=== PATIENT | female | born 1990 | race Caucasian/White ===

== ENCOUNTER 2018-01-12 17:52 | Emergency (ER) | payer SELFPAY ==
[2018-01-12] VITALS (10 sets, daily range): BP systolic 115–122; BP diastolic 65–94; PULSE 86–113; RESP 10–29; TEMP 36.7; O2SAT 83–100
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
[2018-01-12 18:40] LABS: Abs Immature Grans 0.01 k/cumm (0.0-0.09); Absolute Basophil Count 0.04 k/cumm (0.0-0.2); Absolute Eosinophil Count 0.39 k/cumm (0.0-0.7); Absolute Lymphocyte Count 1.95 k/cumm (1.2-3.4); Absolute Monocyte Count 0.61 k/cumm (0.11-0.7); Basophils % 0.5; Eosinophils % 4.6; HCT 45.8 % (36.0-46.0); HGB 15.4 g/dL (12.0-15.5); Immature Grans % 0.1; Lymphocytes % 22.9; Mean Corp. HGB Concentration 33.6 g/dL (32.0-36.0); Mean Corpuscular Hemoglobin 31.2 pg (27.0-33.0); Mean Corpuscular Volume 92.7 fL (80-95); Mean Platelet Volume 9.7 fL (8.0-11.0); Monocytes % 7.2; Neutrophils % 64.7; Platelet Count 302 x1000/uL (130-400); RBC 4.94 m/cumm (4.00-5.20); RBC Distribution Width 12.5 % (11.7-14.6)
[2018-01-12 18:58] LABS: ALT 35 U/L (12-78); AST 26 U/L (15-37); Albumin 4.3 g/dL (3.4-5.0); Alkaline Phosphatase 66 U/L (46-116); BUN 13 mg/dL (7-18); Bilirubin, Total 0.5 mg/dL (0.2-1.0); CREATININE 0.81 mg/dL (0.55-1.02); Chloride 99 mmol/L (98-107); Glucose 94 mg/dL (70-100); Magnesium 1.8 mg/dL (1.8-2.4); Potassium 3.9 mmol/L (3.5-5.1); Sodium 136 mmol/L (136-145); Total Protein 7.9 g/dL (6.4-8.2); Troponin I < 0.02 ng/mL (0.00-0.06)
[2018-01-12] MEDS: Normal Saline Flush 10 ML SYR IVP (19:10)
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
[2018-01-12] MEDS: Cyclobenzaprine 10 MG TAB PO (19:45)
== END 2018-01-12 19:59 | disposition home or self-care (01) ==
PROVIDERS: Emergency Provider Nurse Practitioner Family; PCP Nurse Practitioner Adult Health
DX: S60.812A Abrasion of left wrist, initial encounter (principal); M54.5 Low back pain; M54.2 Cervicalgia; N83.8 Other noninflammatory disorders of ovary, fallopian tube and broad ligament; V47.5XXA Car driver injured in collision with fixed or stationary object in traffic accident, initial encounter
CPT/HCPCS: 36415; 80053; 99284; 70450; 72125; 74176; 81003; 83735; 84484; 85025; L0120

== ENCOUNTER 2018-04-13 12:42 | Emergency (ER) | payer MEDICAID, SELFPAY ==
[2018-04-13] VITALS (31 sets, daily range): BP systolic 93–115; BP diastolic 44–100; PULSE 83–118; RESP 1–25; TEMP 37.1; O2SAT 95–100
[2018-04-13] MEDS: Albuterol/Ipratropium 3 ML UPD VIAL ×2 (13:12→13:21)
--- NOTE | 2018-04-13 13:26 | DI.RAD_ITS ---
SYMPTOM/DIAGNOSIS: COUGH, ASTHMA PA AND LATERAL CHEST: Comparison is made with 10 May 2011. The heart size is normal. The lungs are hyperinflated but otherwise clear. No infiltrate, effusion or pneumothorax is seen. IMPRESSION: Hyperinflation, otherwise negative.
--- NOTE | 2018-04-13 13:34 | ED.GENADUL_ITS ---
Discharge Plan Disposition Patient Disposition: HOME Discharge Details Chief Complaint: RespSymp Clinical Impression: Asthma exacerbation, Bronchitis Reason For Visit: sob Primary Care Provider: Christina Brock ED Provider: Ross Kevin Home Meds and New Rx's Prescriptions: New prednisone 20 mg tablet 40 mg PO DAILY Qty: 8 RF: 0 doxycycline hyclate 100 mg tablet 100 mg PO BID Qty: 9 RF: 0 Continued sertraline 100 MG tablet 200 mg PO HS RF: 0 quetiapine [Seroquel] 100 MG tablet 150 mg PO HS RF: 0 dextroamphetamine-amphetamine [Adderall] 20 MG tablet 20 mg PO TID RF: 0 Discharge Instructions Instructions: Asthma (ED), Acute Bronchitis (ED) Additional Instructions: Please take medication as prescribed. Use your inhaler: 2 puffs every 4 hours as needed for wheeze or shortness of breath. Please contact your primary care physician to arrange follow-up. Return to the ER for any worsening or new concerning symptoms. Referrals: Christina Brock [Primary Care Provider] - Discharge Data Discharge Date/Time-TO BE ENTERED AT DEPARTURE: 04/13/18 15:48 Medical Decision Making 13:32 --27-year-old female with history of asthma here with shortness of breath, wheeze and cough worsening for the past week Patient used her boyfriend's epipen 3 times this past week most recently at 4 AM last night. Advised that this was not advised as initial treatment for asthma. Plan to treat with albuterol DuoNeb as well as prednisone. Respiratory therapy was consulted and administered 2 DuoNeb's. Patient's wheeze resolved after treatment. Consider PNA vs URI. cxr pending. --Chest x-ray reviewed and interpreted by radiology:IMPRESSION: Possible obstructive airways disease versus good inspiratory effort. No pulmonary consolidation. --Patient reassessed and significantly improved. requesting discharge. provided education on albuterol inhaler and spacer. Prescribed doxy and prednisone. HPI General Mode of arrival: ambulatory . Date/Time Provider Initiated Documentation: 04/13/18 13:02 . Limitations to Documentation: no limitations . Information obtained by: patient . HPI Narrative: 27-year-old female with history of asthma presents with chief complaint of shortness of breath. Patient notes over the past week she has had cough and intermittent shortness of breath with wheezing. Symptoms consistent with prior asthma exacerbations. Patient notes that she has had trouble with transportation and over the past 1 week has used 3 EpiPen's to treat her asthma. She last administered EpiPen this morning at 4 AM -this did help her symptoms. Shortness of breath and wheeze has been severe at times. No assoc CP. No fever. Related Data Home Medications Medication Instructions Recorded Confirmed dextroamphetamine-amphetamine 20 mg PO TID 06/09/17 04/13/18 [Adderall] quetiapine [Seroquel] 150 mg PO HS 06/09/17 04/13/18 sertraline 200 mg PO HS 06/09/17 04/13/18 doxycycline hyclate 100 mg PO BID #9 tab 04/13/18 prednisone 40 mg PO DAILY #8 tab 04/13/18 Previous Rx's Medication Instructions Recorded doxycycline hyclate 100 mg PO BID #9 tab 04/13/18 prednisone 40 mg PO DAILY #8 tab 04/13/18 Allergies Allergy/AdvReac Type Severity Reaction Status Date / Time No Known Allergies Allergy Unverified 04/18/18 09:21 General Stated Complaint: RespSymp ALYSE: 3 Review of Systems Constitutional Denies fever(s) Cardiovascular Denies chest pain and Reports dyspnea Respiratory Reports dyspnea and Reports wheezing Allergic/Immunologic Reports wheezing PFSH Medical History Asthma (Chronic) Social History Smoking/Tobacco Use Status: Former Tobacco Use Exam Const General: cooperative and no acute distress HENMT Head: normocephalic and atraumatic Mouth: moist mucous membranes Throat: posterior oropharynx normal Eyes Conjunctivae: normal conjunctivae Sclera: normal sclerae EOM: EOM intact bilaterally Neck Neck: trachea midline and supple Resp Effort & Inspection: able to speak in complete sentences, no retractions, no stridor and tachypneic Auscultation: no rales, rhonchi and wheezes scattered wheezes Cardio Jugular venous pressure: no JVD Rate: regular rate and not tachycardic Rhythm: regular rhythm GI Palpation: soft, not firm, no guarding, no masses, not rigid and nontender Skin General skin exam: no rashes or lesions noted Neuro General: alert, awake, oriented x3 and tone normal Extrem General: no edema Psych Appearance: grossly normal Mental Status: mental status grossly normal Speech and Movement: speech and movement normal Course Vital Signs Temperature 37.1 C 04/13/18 12:51 Pulse 97 H 04/13/18 12:51 Respiratory Rate 24 04/13/18 12:51 Blood Pressure 115/100 H 04/13/18 12:51 Pulse Oximetry 97 04/13/18 12:51 Temperature 37.1 C 04/13/18 12:51 Temperature Source Tympanic 04/13/18 12:51 Pulse 97 H 04/13/18 12:51 Respiratory Rate 24 04/13/18 12:51 Blood Pressure 115/100 H 04/13/18 12:51 Pulse Oximetry 97 04/13/18 12:51 Oxygen Delivery Method Room Air 04/13/18 12:51 Oxygen Flow Rate 0 04/13/18 12:51
[2018-04-13] MEDS: predniSONE 20 MG TAB 60 MG PO (13:40)
--- NOTE | 2018-04-13 14:18 | DI.VRAD_ITS ---
EXAM: XR Chest, 2 Views EXAM DATE/TIME: 04/13/2018 1:27 PM CLINICAL HISTORY: 27 years old, female; Signs and symptoms; Cough TECHNIQUE: XR of the chest, 2 views. COMPARISON: CR CHEST 2 VIEWS PA,LAT 05/10/2011 12:17 PM FINDINGS: Lungs: Hyperexpanded lungs which may be seen with obstructive airways disease or good inspiratory effort. The lungs are clear. Pleural space: No pleural effusion or pneumothorax. Heart/Mediastinum: The cardiomediastinal silhouette and vasculature are within normal limits. Bones/joints: Unremarkable. IMPRESSION: Possible obstructive airways disease versus good inspiratory effort. No pulmonary consolidation. Dictated and Authenticated by: Theron Smith MD. Ordering:OSVALDO Hawkins MD
[2018-04-13] MEDS: Albuterol HFA 8 GM 60 PUFF INH IH (15:35)
[2018-04-13] MEDS: Doxycycline Hyclate 100 MG CAP PO (15:45)
== END 2018-04-13 15:48 | disposition home or self-care (01) ==
PROVIDERS: Emergency Provider Student in an Organized Health Care Education/Training Program; PCP Nurse Practitioner Family
DX: J44.0 Chronic obstructive pulmonary disease with (acute) lower respiratory infection (principal); J20.9 Acute bronchitis, unspecified; J45.909 Unspecified asthma, uncomplicated; Z87.891 Personal history of nicotine dependence
CPT/HCPCS: 36416; 81025; 93005; 94640; 99284; 71046; 93010; J7512; J7620

== ENCOUNTER 2018-04-18 09:05 | Emergency (ER) | payer MEDICAID, SELFPAY ==
[2018-04-18 09:14] VITALS: RESP 4
[2018-04-18] MEDS: Albuterol/Ipratropium 3 ML UPD VIAL UPD ×2 (09:14)
[2018-04-18 09:15] VITALS: BP 103/64; PULSE 110; RESP 18; TEMP 36.7; O2SAT 96
--- NOTE | 2018-04-18 09:23 | W.ED.GENAD ---
Discharge Plan Disposition Patient Disposition: HOME Condition: Improving Discharge Details Chief Complaint: SOB Clinical Impression: Acute asthma exacerbation, Noncompliance with medication regimen Primary Care Provider: Christina Brock ED Provider: Ross Kevin Home Meds and New Rx's Prescriptions: New albuterol sulfate 90 mcg/actuation HFA aerosol inhaler 2 puff IH Q4H PRN (Reason: shortness of breath or wheezing) Qty: 8 RF: 2 Continued sertraline 100 MG tablet 200 mg PO HS RF: 0 quetiapine [Seroquel] 100 MG tablet 150 mg PO HS RF: 0 dextroamphetamine-amphetamine [Adderall] 20 MG tablet 20 mg PO TID RF: 0 prednisone 20 mg tablet 40 mg PO DAILY Qty: 8 RF: 0 doxycycline hyclate 100 mg tablet 100 mg PO BID Qty: 9 RF: 0 Discharge Instructions Instructions: Albuterol (By breathing), Asthma (ED) Additional Instructions: Please take medication as prescribed. Usealbuterol inhaler: 2 puffs every 4 hours as needed for shortness of breath or wheeze. Please contact your primary care physician to arrange follow-up. Return to the ER for any worsening or new concerning symptoms. Referrals: Christina Brock [Primary Care Provider] - Discharge Data Discharge Date/Time-TO BE ENTERED AT DEPARTURE: 04/18/18 10:27 Medical Decision Making 9:25 -- 27-year-old female with history of asthma, recently seen in the emergency department for asthma and bronchitis, noncompliant with treatment plan as she has been unable to secure transportation to pharmacy, returning today with recurrent worsening of wheeze and shortness of breath. Saturating well. Wheezing bilaterally. Plan to treat with duo nebs as well as prednisone. I will asked care management to see the patient to help with resources. 10:15 -- Pt reassessed and wheeze resolved. Much improved. Disposition decision was made weighing the risks and benefits of hospitalization versus outpatient treatment, the risk for further decompensation, and the patient's wishes. The patient was stable and requested discharge. Prior to discharge, my usual and customary return precautions were reviewed with the patient - this included follow-up instructions and reason to return to the emergency department if condition worsens, does not improve as expected, or other new concerns arise. Care management to arrange for taxi to pharmacy. HPI General Mode of arrival: ambulatory. Date/Time Provider Initiated Documentation: 04/18/18 09:11. Limitations to Documentation: no limitations. Information obtained by: patient. HPI Narrative: 27-year-old female with history of asthma presents with chief complaint of wheeze and shortness of breath. Symptoms severe. No modifiers. She does have associated mild cough. Patient was seen here on 04/13/2018 for asthma exacerbation and bronchitis. She had a chest x-ray that did not reveal any pneumonia. She was treated with albuterol nebs and prednisone and had significant improvement. She was discharged on prednisone, doxycycline, and given an albuterol inhaler with spacer. Unfortunately her dog ate her inhaler and she has not been able to fill her prescription for prednisone or doxycycline. She has continued to have intermittent waxing and waning wheeze as well as cough. Today around 5 AM she suddenly developed severe worsening of wheeze and shortness of breath. Denies fever. Related Data Home Medications Medication Instructions Recorded Confirmed dextroamphetamine-amphetamine 20 mg PO TID 06/09/17 04/18/18 [Adderall] quetiapine [Seroquel] 150 mg PO HS 06/09/17 04/18/18 sertraline 200 mg PO HS 06/09/17 04/18/18 doxycycline hyclate 100 mg PO BID #9 tab 04/13/18 prednisone 40 mg PO DAILY #8 tab 04/13/18 albuterol sulfate 2 puff IH Q4H PRN #8 gm 04/18/18 Previous Rx's Medication Instructions Recorded doxycycline hyclate 100 mg PO BID #9 tab 04/13/18 prednisone 40 mg PO DAILY #8 tab 04/13/18 albuterol sulfate 2 puff IH Q4H PRN #8 gm 04/18/18 Allergies Allergy/AdvReac Type Severity Reaction Status Date / Time No Known Allergies Allergy Unverified 04/18/18 09:21 General Stated Complaint: SOB ALYSE: 3 Review of Systems Review of Systems All systems reviewed & are unremarkable except as noted in HPI and below Cardiovascular Denies chest pain Respiratory Reports as per HPI PFSH Medical History Asthma (Chronic) Social History Smoking and Tabacco status: Former Tobacco Use Exam Const General: cooperative and no acute distress [facility] Head: normocephalic and atraumatic Mouth: moist mucous membranes Eyes Conjunctivae: normal conjunctivae Sclera: normal sclerae EOM: EOM intact bilaterally Neck Neck: trachea midline and supple Resp Effort & Inspection: no cough and other (tachypnea) Auscultation: no rales and wheezes expiratory wheezes Cardio Jugular venous pressure: no JVD Rate: regular rate and not tachycardic Rhythm: regular rhythm GI Palpation: soft, not firm, no guarding, no masses, not rigid and nontender Skin General skin exam: no rashes or lesions noted Neuro General: alert, awake, oriented x3 and tone normal Extrem General: no edema Psych Appearance: grossly normal Speech and Movement: speech and movement normal Course Vital Signs Temperature 36.7 C 04/18/18 09:15 Pulse 110 H 04/18/18 09:15 Respiratory Rate 18 04/18/18 09:15 Blood Pressure 103/64 04/18/18 09:15 Pulse Oximetry 96 04/18/18 09:15 Temperature 36.7 C 04/18/18 09:15 Temperature Source Temporal Artery Scan 04/18/18 09:15 Pulse 110 H 04/18/18 09:15 Respiratory Rate 18 04/18/18 09:15 Respiratory Effort Accessory Muscle Use 04/18/18 09:18 Blood Pressure 103/64 04/18/18 09:15 Blood Pressure Position Sitting 04/18/18 09:15 Pulse Oximetry 96 04/18/18 09:15 Oxygen Delivery Method Room Air 04/18/18 09:15 Oxygen Flow Rate 0 04/18/18 09:15 Pain Level 0 04/18/18 09:15
[2018-04-18] MEDS: predniSONE 20 MG TAB 60 MG PO (09:28)
[2018-04-18 09:52] VITALS: RESP 20
[2018-04-18 09:53] VITALS: BP 102/57; PULSE 92; O2SAT 100
[2018-04-18] MEDS: Albuterol HFA 8 GM 60 PUFF INH IH (10:21)
[2018-04-18 10:22] VITALS: BP 100/48; PULSE 109; RESP 18; O2SAT 97
[2018-04-18 10:41] VITALS: BP 115/87; PULSE 66; RESP 18; O2SAT 97
--- NOTE | 2018-04-18 14:18 | PDOC.ERCMPRO ---
Care Management Progress Note 04/18-Dr. Kevin requested assistance with Ashley picking up medication at pharmacy and transportation home. Ashley was seen over the weekend and did not get her medications picked up. Dr. Kevin has requested that patient's scripts be called in to her pharmacy. Met with Ashley and she states she has no transportation. Discussed pharmacy, she uses [facility] in [facility]. 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 Nurse called scripts to [facility]. Called [facility] and spoke with Barbara. Barbara scheduled Ashley for an 1115 pickup and verified that [facility] will bring her to [facility] first. Dr. Kevin, patient, and nursing all in agreement with above plan.
--- NOTE | 2018-04-18 14:21 | CMPROGNOTE_ITS ---
Care Management Progress Note 04/18-Dr. Kevin requested assistance with Ashley picking up medication at pharmacy and transportation home. Ashley was seen over the weekend and did not get her medications picked up. Dr. Kevin has requested that patient's scripts be called in to her pharmacy. Met with Ashley and she states she has no transportation. Discussed pharmacy, she uses [facility] in [facility]. 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 Nurse called scripts to [facility]. Called [facility] and spoke with Barbara. Barbara scheduled Ashley for an 1115 pickup and verified that [facility] will bring her to [facility] first. Dr. Kevin, patient, and nursing all in agreement with above plan.
== END 2018-04-18 10:27 | disposition home or self-care (01) ==
PROVIDERS: Emergency Provider Student in an Organized Health Care Education/Training Program; PCP Nurse Practitioner Family
DX: J45.909 Unspecified asthma, uncomplicated (principal); Z91.19 Patient's noncompliance with other medical treatment and regimen
CPT/HCPCS: 94640; 99283; J7512; J7620

== ENCOUNTER 2018-05-09 05:46 | Emergency (ER) | payer MEDICAID, SELFPAY ==
[2018-05-09 05:47] VITALS: BP 139/71; PULSE 106; RESP 20; TEMP 36.6; O2SAT 99
--- NOTE | 2018-05-09 06:33 | ED.GENADUL_ITS ---
Discharge Plan Disposition Patient Disposition: HOME Condition: Good Discharge Details Chief Complaint: RespSymp Clinical Impression: Asthma exacerbation Reason For Visit: BHARAT Primary Care Provider: Christina Brock ED Provider: Calin Rivas Home Meds and New Rx's Prescriptions: New prednisone 10 mg tablet See Rx Instructions .ROUTE .COMPLEX Qty: 30 RF: 0 Continued sertraline 100 MG tablet 200 mg PO HS RF: 0 quetiapine [Seroquel] 100 MG tablet 150 mg PO HS RF: 0 dextroamphetamine-amphetamine [Adderall] 20 MG tablet 20 mg PO TID RF: 0 albuterol sulfate 90 mcg/actuation HFA aerosol inhaler 2 puff IH Q4H PRN (Reason: shortness of breath or wheezing) Qty: 8 RF: 2 Discharge Instructions Instructions: Asthma (ED) Additional Instructions: Please take prednisone as directed. Use your inhaler every 4-6 hours as needed for wheeze and cough. Make follow-up appointment for next week with primary care. Return to emergency department for fever, increasing shortness of breath, other concerns. Referrals: Christina Brock [Primary Care Provider] - Medical Decision Making Patient with worsening asthma symptoms over the last week or so. Has run out of her inhaler. Has not been able to get into see her primary care. Received an albuterol in route. Continues to have diffuse wheezing throughout. Will give prednisone, albuterol, DuoNeb here. Will reevaluate plan on discharge with inhaler and prednisone. Patient with much better air exchange after the 3 nebs total. Still has some wheezing and now has some rhonchi but has good air movement. She feels better. Saturations are good. Will be discharged home on a prednisone burst and taper as well as albuterol inhaler. Follow-up with primary care next week. Medical Records Medical records reviewed: Yes I reviewed the patient's medical records. HPI General Mode of arrival: EMS . Date/Time Provider Initiated Documentation: 05/09/18 06:30 . Limitations to Documentation: no limitations . Information obtained by: patient and old records reviewed . HPI Narrative: Patient presents to ED by ambulance for wheezing and shortness of breath. Patient is out of her albuterol inhaler. She reports having her doctor's appointments canceled by the office. She has been seen here a couple of times with asthma exacerbation. She denies smoking. She continues to have some nasal congestion and cold type symptoms intermittently. Has been having worsening symptoms again. This morning woke up with chest tightness, wheezing, inability to take a deep breath. EMS was contacted. She received a albuterol in route. She is feeling like she can breathe better but still feels short of breath. Related Data Home Medications Medication Instructions Recorded Confirmed dextroamphetamine-amphetamine 20 mg PO TID 06/09/17 05/09/18 [Adderall] quetiapine [Seroquel] 150 mg PO HS 06/09/17 05/09/18 sertraline 200 mg PO HS 06/09/17 05/09/18 albuterol sulfate 2 puff IH Q4H PRN #8 gm 04/18/18 prednisone See Rx Instructions .ROUTE 05/09/18 .COMPLEX #30 tab Previous Rx's Medication Instructions Recorded albuterol sulfate 2 puff IH Q4H PRN #8 gm 04/18/18 prednisone See Rx Instructions .ROUTE 05/09/18 .COMPLEX #30 tab Allergies Allergy/AdvReac Type Severity Reaction Status Date / Time No Known Allergies Allergy Unverified 05/09/18 05:54 General Stated Complaint: RespSymp ALYSE: 4 Review of Systems Constitutional Denies chills, Denies fever(s), Denies headache(s) and Denies weakness ENT Denies otalgia, Denies headache(s), Reports nasal congestion, Denies neck pain and Denies sore throat Cardiovascular Denies chest pain, Denies syncope, Denies pedal edema and Reports dyspnea Respiratory Reports chest congestion, Reports cough, Reports dyspnea and Reports wheezing Gastrointestinal Denies abdominal pain, Denies diarrhea, Denies nausea and Denies vomiting Musculoskeletal Denies back pain and Denies neck pain Neurologic Denies syncope, Denies headache(s), Denies focal weakness, Denies sensory deficit and Denies weakness Allergic/Immunologic Reports wheezing PFSH Medical History ADD (attention deficit disorder) (Chronic) Anxiety (Chronic) Depression (Chronic) Asthma (Chronic) Social History Smoking and Tabacco status: Former Tobacco Use Exam Const General: cooperative and no acute distress Orientation: alert and oriented x3 HENMT Head: normocephalic and atraumatic Mouth: oropharynx normal Throat: posterior oropharynx normal Neck Neck: trachea midline and supple Resp Effort & Inspection: normal respiratory effort Auscultation: no rales, no rhonchi and wheezes Cardio Rate: regular rate Rhythm: regular rhythm Heart Sounds: S1 normal and S2 normal Neuro General: alert, oriented x3, no focal motor deficits and CN's II-XI intact bilaterally Course Vital Signs Temperature 97.9 F 05/09/18 05:47 Pulse 106 H 05/09/18 05:47 Respiratory Rate 20 05/09/18 05:47 Blood Pressure 139/71 05/09/18 05:47 Pulse Oximetry 99 05/09/18 05:47 Temperature 97.9 F 05/09/18 05:47 Temperature Source Skin 05/09/18 05:47 Pulse 106 H 05/09/18 05:47 Respiratory Rate 20 05/09/18 05:47 Respiratory Effort 05/09/18 05:53 Blood Pressure 139/71 05/09/18 05:47 Blood Pressure Position Sitting 05/09/18 05:47 Pulse Oximetry 99 05/09/18 05:47 Oxygen Delivery Method Aerosol Mask 05/09/18 05:47
[2018-05-09] MEDS: predniSONE 20 MG TAB 60 MG PO (06:42)
[2018-05-09] MEDS: Albuterol/Ipratropium 3 ML UPD VIAL UPD (06:43)
[2018-05-09] MEDS: Albuterol 2.5 MG/3 ML INH SOLN VIAL UPD (07:02)
[2018-05-09 07:26] VITALS: BP 107/57; PULSE 118; RESP 20; TEMP 36.7; O2SAT 98
[2018-05-09 08:16] VITALS: BP 112/58; PULSE 111; RESP 18; TEMP 36.9; O2SAT 96
--- NOTE | 2018-05-09 08:17 | PDOC.ERCMPRO ---
Care Management Progress Note 05/09-Met with Ashley as she needs a ride home. Ashley came in by ambulance for difficulty breathing, respiratory. 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 Scripts have been called in. Aslhey also states that she has not been able to get in to see Christina Brock, Ashley states that her last two appts have been cancelled. Called [facility] and spoke with Malia. Malia stated that transport will be here in about 10-15 minutes. [facility] will stop at [facility] first. Called [facility] and spoke with Jessi. Jessi scheduled Ashley for Sunday, 05/14 at 230 with Christina Brock. This CM met again with Ashley and let her know that her scripts have been called in, [facility] will be here in 15 minutes, and that she has a f/u appt on 05/14. Appt card given to patient as well. Holden CHAPPELL notified of the above.
[2018-05-09 08:18] VITALS: BP 112/58; PULSE 111; RESP 18; TEMP 36.9; O2SAT 96
--- NOTE | 2018-05-09 08:42 | CMPROGNOTE_ITS ---
Care Management Progress Note 05/09-Met with Ashley as she needs a ride home. Ashley came in by ambulance for difficulty breathing, respiratory. 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 Scripts have been called in. Ashley also states that she has not been able to get in to see Christina Brock, Ashley states that her last two appts have been cancelled. Called [facility] and spoke with Malia. Malia stated that transport will be here in about 10-15 minutes. [facility] will stop at [facility] first. Called [facility] and spoke with Jessi. Jessi scheduled Ashley for Sunday, 05/14 at 230 with Christina Brock. This CM met again with Ashley and let her know that her scripts have been called in, [facility] will be here in 15 minutes, and that she has a f/u appt on 05/14. Appt card given to patient as well. Holden CHAPPELL notified of the above.
== END 2018-05-09 08:24 | disposition home or self-care (01) ==
PROVIDERS: Emergency Provider Emergency Medicine; PCP Nurse Practitioner Family
DX: J45.901 Unspecified asthma with (acute) exacerbation (principal)
CPT/HCPCS: 94640; 99283; J7512; J7613; J7620

== ENCOUNTER 2019-11-27 08:46 | Emergency (ER) | payer MEDICAID, SELFPAY ==
--- NOTE | 2019-11-27 08:47 | W.ED.GENAD ---
Discharge Plan Disposition Patient Disposition: HOME Condition: Stable Discharge Details Clinical Impression: Nausea & vomiting Primary Care Provider: Christina Brock ED Provider: Cass Alvarado Home Meds and New Rx's Prescriptions: New promethazine [Promethegan] 12.5 mg suppository 12.5 mg ID Q6H PRN (Reason: nausea and vomiting) Qty: 12 RF: 0 Continued fluticasone propion-salmeterol [Advair Diskus] 500-50 mcg/dose blister with device 1 inh IH BID RF: 0 sertraline 100 MG tablet 200 mg PO HS RF: 0 quetiapine [Seroquel] 100 MG tablet 150 mg PO HS RF: 0 dextroamphetamine-amphetamine [Adderall] 20 MG tablet 20 mg PO TID RF: 0 albuterol sulfate 90 mcg/actuation HFA aerosol inhaler 2 puff IH Q4H PRN (Reason: shortness of breath or wheezing) Qty: 8 RF: 2 prednisone 10 mg tablet See Rx Instructions .ROUTE .COMPLEX Qty: 30 RF: 0 albuterol sulfate 90 mcg/actuation HFA aerosol inhaler 2 puff IH Q6H PRN (Reason: shortness of breath or wheezing) Qty: 8 RF: 0 Discharge Instructions Instructions: Acute Nausea and Vomiting (ED) Additional Instructions: Please continue to encourage water intake. Your CT scan was reassuring did not show any acute pathology in your abdomen. If your nausea and vomiting return, please use the Phenergan as prescribed. If you develop fever/chills, increased pain, inability stay hydrated or other new/worsening symptom please seek care urgently once again. Otherwise, please follow-up with primary care next week for reevaluation. Referrals: Christina Brock [Primary Care Provider] - Discharge Data Discharge Date/Time-TO BE ENTERED AT DEPARTURE: 11/27/19 12:44 Medical Decision Making Patient is a pleasant 29-year-old female past medical history significant for asthma and anxiety, presenting today with chief complaint of abdominal pain and nausea/vomiting that began at 5 AM. She reports that this did wake her up suddenly. States she is vomited x10 this morning. She denies any hematemesis. Denies any diarrhea or change in her bowel habits. Has not urinated yet this morning. LMP 1 month ago. No previous abdominal surgeries. On exam, patient appears nontoxic. She does appear quite anxious. She is endorsing some tingling in her hands but is breathing quite quickly. Patient does have some scattered wheezes. She does have asthma, does not feel that she is having exacerbation. However, she does report that she will use her albuterol at home if she had access to it. We will give her an inhaler. Her abdominal exam reveals some discomfort in the epigastric area as well as over McBurney's point. She does not have any guarding or peritoneal findings. Plan to obtain labs, hydrate the patient, give Zofran and obtain CT to evaluate for potential appendicitis been a source of her current complaints. Discussed this plan at length with patient and she is in agreement. Ct reviewed by radiologist: FINDINGS: ABDOMEN: Lung Bases: Normal where visualized. Liver: Normal density. No measurable mass. Gallbladder and biliary tract: No radiodense calculus or dilation. Pancreas: Normal density, no abnormal calcifications or inflammatory process. Spleen: Normal. Kidneys: Normal size, contour and axis. No radiodense stones or obstructive uropathy. No masses seen. Adrenal glands: No masses seen. Abdominal Aorta: Abdominal portion non-dilated. PELVIS: Bladder: Symmetric distention, no gross wall thickening. Bowel: No obstruction or bowel wall thickening. Normal appendix. Normal quantity of stool. Peritoneal cavity: No ascites, collection or mesenteric inflammatory response. Bones: Within normal limits. Reproductive organs: Within normal limits. IUD Lymph nodes: Unremarkable. Impression: Unremarkable CT scan of the abdomen and pelvis. Labs reviewed. Mild leukocytosis of white count 13.7. Chest slightly low at 3.4. Anion gap of 13.7. Creatinine 0.95. Urine is positive for nitrates but is contaminated. Will obtain a clean sample. Patient is denying any urinary symptoms at this time but potentially she is having discomfort associated with urinary tract infection. Repeat urine significant for ketones but negative for nitrates and negative for leukocyte esterase. Believe UTI is been ruled out. I advised that patient likely has viral source of nausea, vomiting and abdominal discomfort. Do not see any surgical or emergent pathology today. But well to Phenergan here. We will discharge her home with Phenergan suppositories as this did seem to work better for her than Zofran. I have asked that she follow-up her primary care provider next week for reevaluation. Strict return precautions were given. All of her questions and concerns were addressed and she is in agreement this plan. HPI General Mode of arrival: ambulatory. Date/Time Provider Initiated Documentation: 11/27/19 08:47. Limitations to Documentation: no limitations. Information obtained by: patient and RN notes reviewed. History of Present Illness 29 year old F presents to the emergency department with the chief complaint of abdominal pain, nausea and vomiting, described as moderate, with intensity rated at 6. Quality is described as aching, and is localized to the abdomen. Patient reports no radiation. Patient started experiencing this hour(s) (began at 0500) and it has been constant. No relieving factors improve symptom(s), No exacerbating factors reported . Patient notes loss of appetite, nausea/vomiting (vomited x 10) and shortness of breath (feels that she would use inhaler at home, hx of asthma); denies chest pain, fever/chills and rash. Patient did receive the following treatments prior to arrival, none Related Data Home Medications Medication Instructions Recorded Confirmed dextroamphetamine-amphetamine 20 mg PO TID 06/09/17 11/27/19 [Adderall] quetiapine [Seroquel] 150 mg PO HS 06/09/17 11/27/19 sertraline 200 mg PO HS 06/09/17 11/27/19 albuterol sulfate 2 puff IH Q4H PRN #8 gm 04/18/18 11/27/19 albuterol sulfate 2 puff IH Q6H PRN #8 gm 05/09/18 11/27/19 prednisone See Rx Instructions .ROUTE 05/09/18 .COMPLEX #30 tab fluticasone 500 mcg-salmeterol 50 1 inh IH BID 06/05/18 11/27/19 mcg/dose blistr powdr for inhalation promethazine [Promethegan] 12.5 mg ID Q6H PRN #12 ea 11/27/19 Previous Rx's Medication Instructions Recorded albuterol sulfate 2 puff IH Q4H PRN #8 gm 04/18/18 albuterol sulfate 2 puff IH Q6H PRN #8 gm 05/09/18 prednisone See Rx Instructions .ROUTE 05/09/18 .COMPLEX #30 tab promethazine [Promethegan] 12.5 mg ID Q6H PRN #12 ea 11/27/19 Allergies Allergy/AdvReac Type Severity Reaction Status Date / Time No Known Allergies Allergy Unverified 11/27/19 08:55 General ALYSE: 4 Review of Systems Constitutional Constitutional: Reports as per HPI, Denies chills, Denies fatigue, Denies fever(s) and Denies headache(s) ENT Ears, Nose, Mouth, and Throat: Denies headache(s) Cardiovascular Cardiovascular: Reports as per HPI, Denies chest pain and Reports dyspnea Respiratory Respiratory: Reports as per HPI, Denies cough, Reports dyspnea and Reports wheezing Gastrointestinal Gastrointestinal: Reports as per HPI Genitourinary Genitourinary: Reports system reviewed and no additional complaints, except as documented (LMP one month ago) Musculoskeletal Musculoskeletal: Reports as per HPI and Denies back pain Integumentary/Breasts Skin/Breast: Reports as per HPI and Denies rash Neurologic Neurologic: Reports as per HPI and Denies headache(s) Endocrine Endocrine: Denies fatigue Allergic/Immunologic Allergic/Immunologic: Reports wheezing [facility] Medical History ADD (attention deficit disorder) Anxiety Asthma Depression Ovarian cyst Pap smear vag w [facility]- Social History Smoking/Tobacco Use Status: Former Tobacco Use Alcohol Intake: current Alcohol Intake frequency: holidays/special occasions only Drug use: Occasionally Substance use type: marijuana Do you feel safe at home: Yes Do you feel safe in your relationship?: Yes Exam Const General: cooperative, healthy appearing, no acute distress, well developed and anxious Nutritional Appearance: average body habitus and well nourished Orientation: alert and awake [facility] Head: normal to inspection Mouth: mucous membranes dry (dry) Resp Effort & Inspection: normal respiratory effort, able to speak in complete sentences and no respiratory distress Auscultation: no rales, no rhonchi and wheezes expiratory wheezes and scattered wheezes Cardio Rate: regular rate Rhythm: regular rhythm Heart Sounds: S1 normal and S2 normal GI Inspection: normal to inspection, non-distended, no visible herniation and no visible pulsation Palpation: soft, no hepatosplenomegaly, not firm, no guarding, no hernias and tender in the epigastrum, in the RLQ and at McBurney's point; De Leon's sign negative, obturator sign negative, psoas sign negative and with no rebound tenderness Percussion: normal to percussion Auscultation: normal bowel sounds Back/Spine/Pelvis Back: no CVA tenderness Skin General skin exam: no rashes or lesions noted Trauma: no lacerations or abrasions Neuro General: patient alert and patient awake Cognition: normal cognition Speech: speech normal Gait: normal gait Psych Appearance: grossly normal and well kempt Mental Status: mental status grossly normal Speech and Movement: speech and movement normal
[2019-11-27 08:50] VITALS: BP 95/66; PULSE 116; RESP 16; TEMP 36.6; O2SAT 98
--- NOTE | 2019-11-27 09:00 | DI.CT_ITS ---
EXAM: CT ABDOMEN PELVIS W CLINICAL HISTORY: RLQ pain. TECHNIQUE: Imaging Protocol: Axial computed tomography images with coronal and sagittal reformatted images were created and reviewed CONTRAST MATERIAL: Intravenous: Omnipaque 350 Contrast volume:77 cc Oral: no COMPARISON: CT CT ABDOMEN PELVIS WO from 01/12/2018 FINDINGS: ABDOMEN: Lung Bases: Normal where visualized. Liver: Normal density. No measurable mass. Gallbladder and biliary tract: No radiodense calculus or dilation. Pancreas: Normal density, no abnormal calcifications or inflammatory process. Spleen: Normal. Kidneys: Normal size, contour and axis. No radiodense stones or obstructive uropathy. No masses seen. Adrenal glands: No masses seen. Abdominal Aorta: Abdominal portion non-dilated. PELVIS: Bladder: Symmetric distention, no gross wall thickening. Bowel: No obstruction or bowel wall thickening. Normal appendix. Normal quantity of stool. Peritoneal cavity: No ascites, collection or mesenteric inflammatory response. Bones: Within normal limits. Reproductive organs: Within normal limits. IUD Lymph nodes: Unremarkable. Impression: Unremarkable CT scan of the abdomen and pelvis. RADIATION DOSE DELIVERED: Total DLP DATA REPOSITORY: All CT scans at this facility are submitted to the National Radiology Data Registry (NRDR) Dose Index Registry (DIR) with the [employer] (ACR). RADIATION OPTIMIZATION: All CT scans at this facility use at least one of these dose optimization te chniques: automated exposure control; mA and/or kV adjustment per patient size (includes targeted exa ms where dose is matched to clinical indication); or iterative reconstruction.
[2019-11-27] MEDS: Lactated Ringers 1,000 ML 1000 ML IV (09:17)
[2019-11-27] MEDS: Ondansetron 4 MG/2 ML VIAL (09:17)
[2019-11-27 09:29] LABS: Abs Immature Grans 0.07 10^3/uL (0.0-0.06); Absolute Eosinophil Count 0.25 10^3/uL (0.0-0.7); Absolute Lymphocyte Count 4.18 10^3/uL (1.2-3.4); Absolute Monocyte Count 0.61 10^3/uL (0.1-0.8); Basophils % 0.4; Eosinophils % 1.8; HCT 46.6 % (36.0-46.0); HGB 15.6 g/dL (11.2-15.7); Immature Grans % 0.5; Lymphocytes % 30.3; MCH 30.2 pg (27.0-33.0); MCHC 33.5 % (32.0-36.0); MCV 90.3 fL (80-95); MPV 9.1 fL (8.0-11.0); Monocytes % 4.4; Neutrophils % 62.6; Nucleated RBC 0 %; Platelet Count 398 10^3/uL (130-400); RBC 5.16 10^6/uL (3.93-5.22); RDW 11.8 % (11.7-14.6); RDW-SD 38.8 fL; WBC 13.78 10^3/uL (4.4-10.8)
[2019-11-27 09:34] LABS: Absolute Basophil Count 0.06 10^3/uL (0.0-0.2); Absolute Neutrophil Count 8.63 10^3/uL (1.2-6.7)
[2019-11-27 09:43] LABS: Bilirubin Negative (Negative); Blood Negative (Negative); Clarity Clear (Clear); Glucose Negative (Negative); Ketones 40 mg/dL (Negative); Leukocyte Esterase Negative (Negative); Nitrite Positive (Negative); Specific Gravity >= 1.030 (1.005-1.025); Urobilinogen 0.2 EU/dL (Up TO 0.2)
[2019-11-27 09:46] LABS: ALT 29 U/L (14-59); AST 29 U/L (15-37); Albumin 4.7 g/dL (3.4-5.0); Alkaline Phosphatase 99 U/L (46-116); Anion Gap 13.7 mmol/L (3-11); BUN 15 mg/dL (7-18); Bilirubin, Total 0.3 mg/dL (0.2-1.0); CO2 25.3 mmol/L (21.0-32.0); CREATININE 0.95 mg/dL (0.55-1.02); Chloride 102 mmol/L (98-107); Glucose 107 mg/dL (74-106); Lipase 193 U/L (73-393); Potassium 3.4 mmol/L (3.5-5.1); Sodium 141 mmol/L (136-145); Total Protein 8.7 g/dL (6.4-8.2)
[2019-11-27 09:53] LABS: Bacteria Many HPF (Negative); C & S Indicated? No/Sq. Contamination; Casts Negative LPF (Negative); Crystals Negative HPF (Negative); Epithelial Cells Moderate HPF (Negative); Mucus Negative (Negative); RBC 0-2 HPF (0-2)
[2019-11-27] MEDS: Normal Saline - Diluent 50 ML VIAL IV (10:41)
[2019-11-27] MEDS: Omnipaque 350 MG/ML 100 ML BTL 77 ML IJ (10:42)
[2019-11-27] MEDS: Normal Saline 1,000 ML 1000 ML IV (11:25)
[2019-11-27 12:05] LABS: Bilirubin Negative (Negative); Blood Negative (Negative); Clarity Clear (Clear); Glucose Negative (Negative); Ketones 40 mg/dL (Negative); Leukocyte Esterase Negative (Negative); Nitrite Negative (Negative); Urobilinogen 0.2 EU/dL (Up TO 0.2)
[2019-11-27 12:45] VITALS: BP 104/56; PULSE 94; RESP 16; TEMP 36.6; O2SAT 97
== END 2019-11-27 12:44 | disposition home or self-care (01) ==
LOC: ER 12:46
PROVIDERS: Emergency Provider Physician Assistant; PCP Nurse Practitioner Family
DX: R11.2 Nausea with vomiting, unspecified (principal); R06.2 Wheezing
CPT/HCPCS: 80053; 81025; 83690; 96361; 96365; 96375; 99285; 74177; 81003; 81015; 85025; 99284; J2405; J3490

== ENCOUNTER 2019-12-19 08:49 | Emergency (ER) | payer MEDICAID, SELFPAY ==
[2019-12-19 08:52] VITALS: BP 127/74; PULSE 87; RESP 16; TEMP 36.5; O2SAT 97
--- NOTE | 2019-12-19 08:56 | ED.GENADUL_ITS ---
Discharge Plan Disposition Patient Disposition: HOME Condition: Improving Discharge Details Clinical Impression: Nausea and vomiting Primary Care Provider: Christina Brock ED Provider: Trupti Abreu Home Meds and New Rx's Prescriptions: New prochlorperazine maleate [Compazine] 10 mg tablet 10 mg PO TID PRN (Reason: nausea and vomiting) Qty: 7 RF: 0 famotidine [Pepcid] 20 mg tablet 20 mg PO DAILY Qty: 14 RF: 0 Continued sertraline 100 MG tablet 200 mg PO HS RF: 0 quetiapine [Seroquel] 100 MG tablet 150 mg PO HS RF: 0 dextroamphetamine-amphetamine [Adderall] 20 MG tablet 20 mg PO TID RF: 0 albuterol sulfate 90 mcg/actuation HFA aerosol inhaler 2 puff IH Q4H PRN (Reason: shortness of breath or wheezing) Qty: 8 RF: 2 promethazine [Promethegan] 12.5 mg suppository 12.5 mg [place] Q6H PRN (Reason: nausea and vomiting) Qty: 12 RF: 0 albuterol sulfate 90 mcg/actuation HFA aerosol inhaler 2 puff IH Q6H PRN (Reason: shortness of breath or wheezing) Qty: 8 RF: 0 Discharge Instructions Instructions: Acute Nausea and Vomiting (ED) Additional Instructions: Drink plenty of fluids and get plenty of rest. Take the Compazine as needed and directed for nausea and vomiting. Take the Pepcid daily as directed. Follow a low fat diet until follow up with general surgery. Follow-up with general surgery next week for further evaluation and consideration of possible outpatient HIDA scan which is additional testing to rule out possible gallstones. Return to the emergency department with any worsening or new concerning symptoms such as fever, persistent vomiting, or worsening abdominal pain. Referrals: Sophie Andres MD [ [facility] STAFF PHYSICIAN] - Discharge Data Discharge Physician: Trupti Abreu Medical Decision Making 0900 -- 29yo F w/ a h/o asthma and anxiety presents for nausea and vomiting since last night. Vitals within normal limits. Patient appears slightly uncomfortable but nontoxic. She has minimal epigastric tenderness but no abdominal rigidity or guarding. She had a normal CT abdomen and pelvis 2 weeks ago. As she has no complaints of specific abdominal pain and abdomen is soft, will hold on imaging at this time. Will place an IV, give bolus IV fluids, check screening labs and give Zofran and Pepcid and reassess. 1020 --labs reviewed. Normal white blood cell count and electrolytes. Lipase minimally elevated at 421. As patient had a negative CT scan 2 weeks ago, do not see indication for repeat but will obtain a gallbladder ultrasound. Patient reassessed and states she was feeling better until she just got up and her nausea returned and now with some upper abdomen discomfort. Will give a dose of IV compazine and tylenol. She did not yet give a urine sample so obtain a serum qual hCG. 1120 --ultrasound gallbladder negative. Patient reassessed and she states she feels better. Case discussed with surgery on-call Dr. Andres who had recommended follow-up as outpatient for consideration of HIDA scan as gallbladder could still be contributing to her symptoms and minimally elevated lipase. Agrees with plan for Compazine, Pepcid and recommend low-fat diet. She will follow-up with patient next week. Patient advised to return immediately to the emergency department if her symptoms worsen. Medical Records Medical records reviewed: Yes I reviewed the patient's medical records. Imaging Data Radiologic Study: Radiologist's impression: US ABDOMEN LIMITED CLINICAL HISTORY: epigastric pain, vomiting, r/o cholecystitis TECHNIQUE: Ultrasound abdomen performed using standard protocol. COMPARISON: No exams were available for comparison FINDINGS: LIVER: Normal size and echogenicity. No focal liver lesions are seen.. GALLBLADDER: No evidence of cholelithiasis. No evidence of wall thickening. No pericholecystic fluid identified. OSPINA'S SIGN: Negative. BILIARY SYSTEM: No intrahepatic or extrahepatic biliary ductal dilation. Right KIDNEY: Kidneys are symmetric in size. No evidence of renal calculi. No evidence of hydronephrosis. No renal mass or cyst identified. PANCREAS: Normal where visualized. ABDOMINAL AORTA AND IVC: Visualized portions normal caliber. ASCITES: None seen. IMPRESSION: Normal sonographic appearance of the right upper abdomen. Lab Data Lab results reviewed: Yes I reviewed the patient's lab results. Labs: Laboratory Tests Range/Units 12/19/19 12/19/19 12/19/19 09:20 09:20 09:20 WBC (4.4-10.8) 10^3/uL 6.91 RBC (3.93-5.22) 10^6/uL 4.76 Hgb (11.2-15.7) g/dL 14.4 Hct (36.0-46.0) % 43.1 MCV (80-95) fL 90.5 MCH (27.0-33.0) pg 30.3 MCHC (32.0-36.0) % 33.4 RDW (11.7-14.6) % 12.1 Plt Count (130-400) 10^3/uL 284 D MPV (8.0-11.0) fL 9.3 Immature Gran % 0.4 Neutrophils % 65.2 Lymphocytes % 23.6 Monocytes % 5.6 Eosinophils % 4.8 Basophils % 0.4 Nucleated RBC % % 0 Absolute Neutrophils (1.2-6.7) 10^3/uL 4.50 Absolute Lymphocytes (1.2-3.4) 10^3/uL 1.63 Absolute Monocytes (0.1-0.8) 10^3/uL 0.39 Absolute Eosinophils (0.0-0.7) 10^3/uL 0.33 Absolute Basophils (0.0-0.2) 10^3/uL 0.03 Sodium (136-145) mmol/L 139 Potassium (3.5-5.1) mmol/L 3.8 Chloride (98-107) mmol/L 102 Carbon Dioxide (21.0-32.0) mmol/L 26.5 Anion Gap (3-11) mmol/L 10.5 BUN (7-18) mg/dL 9 Creatinine (0.55-1.02) mg/dL 0.84 Estimated GFR/1.73 m2 (mL/min/1.73m2) >= 60.00 Glucose (74-106) mg/dL 127 H Calcium (8.5-10.1) mg/dL 9.1 Total Bilirubin (0.2-1.0) mg/dL 0.4 AST (15-37) U/L 18 ALT (14-59) U/L 24 Alkaline Phosphatase (46-116) U/L 86 Total Protein (6.4-8.2) g/dL 7.3 Albumin (3.4-5.0) g/dL 4.1 Lipase (73-393) U/L 421 H Serum HCG, Qual Negative HPI General Mode of arrival: ambulatory . Date/Time Provider Initiated Documentation: 12/19/19 08:55 . Limitations to Documentation: no limitations . Information obtained by: patient . HPI Narrative: Patient is a 29-year-old female with a history of anxiety, depression, asthma who presents for multiple episodes of vomiting since last night and intermittent episodes of diarrhea for the past few weeks. Patient states she vomited multiple times since last night, last time occurring 45 minutes ago. She states initially was food but now has consisted of bile. She states she was seen here 2 weeks ago for similar complaint and states this feels similar to that but she feels that this episode is due to possible food poisoning after eating a tamales last night. She states her symptoms of nausea and vomiting resolved since her last episode last month until restarting last night. She states she has had intermittent episodes of watery brown diarrhea for the past couple weeks. She denies any known sick con tacts, recent antibiotics, new medications, recent travel. She denies known . She took a Phenergan suppository that she was given on her visit last month this morning and denies any relief. She denies any significant pain and states her main complaint is nausea and dry heaving. Related Data Home Medications Medication Instructions Recorded Confirmed dextroamphetamine-amphetamine 20 mg PO TID 06/09/17 12/19/19 [Adderall] quetiapine [Seroquel] 150 mg PO HS 06/09/17 12/19/19 sertraline 200 mg PO HS 06/09/17 12/19/19 albuterol sulfate 2 puff IH Q4H PRN #8 gm 04/18/18 12/19/19 albuterol sulfate 2 puff IH Q6H PRN #8 gm 05/09/18 12/19/19 promethazine [Promethegan] 12.5 mg IL Q6H PRN #12 ea 11/27/19 12/19/19 famotidine [Pepcid] 20 mg PO DAILY #14 tab 12/19/19 prochlorperazine maleate 10 mg PO TID PRN #7 tab 12/19/19 [Compazine] Previous Rx's Medication Instructions Recorded albuterol sulfate 2 puff IH Q4H PRN #8 gm 04/18/18 albuterol sulfate 2 puff IH Q6H PRN #8 gm 05/09/18 promethazine [Promethegan] 12.5 mg IL Q6H PRN #12 ea 11/27/19 famotidine [Pepcid] 20 mg PO DAILY #14 tab 12/19/19 prochlorperazine maleate 10 mg PO TID PRN #7 tab 12/19/19 [Compazine] Allergies Allergy/AdvReac Type Severity Reaction Status Date / Time No Known Allergies Allergy Unverified 12/19/19 08:55 General Stated Complaint: Nausea/Vomit/Diar ALYSE: 3 Review of Systems All systems reviewed & are unremarkable except as noted in HPI and below Constitutional Constitutional: Reports as per HPI, Denies chills and Denies fever(s) Eyes Eyes: Denies blurry vision ENT Ears, Nose, Mouth, and Throat: Denies dizziness, Denies sore throat and Denies throat swelling Cardiovascular Cardiovascular: Denies chest pain and Denies dyspnea Respiratory Respiratory: Denies cough and Denies dyspnea Gastrointestinal Gastrointestinal: Denies abdominal pain, Denies diarrhea and Reports vomiting Genitourinary Genitourinary: Denies hematuria and Denies dysuria Musculoskeletal Musculoskeletal: Denies back pain and Denies numbness Integumentary/Breasts Skin/Breast: Denies lesions and Denies rash Neurologic Neurologic: Denies dizziness, Denies localized weakness and Denies numbness Allergic/Immunologic Allergic/Immunologic: Denies throat swelling [facility] Medical History ADD (attention deficit disorder) Anxiety Asthma Depression Ovarian cyst Pap smear vag w [facility]- Social History Smoking/Tobacco Use Status: Former Tobacco Use Alcohol Intake: current Alcohol Intake frequency: holidays/special occasions only Drug use: Occasionally Substance use type: marijuana Do you feel safe at home: Yes Do you feel safe in your relationship?: Yes Exam Const General: cooperative, healthy appearing and no acute distress HENMT Head: normal to inspection Face and sinus: normal facial exam Eyes General: appearance normal, both eyes and all related structures EOM: EOM intact bilaterally Neck Neck: normal visual inspection and No submandibular swelling Lymphatic: no lymphadenopathy noted Chest Chest: normal inspection of the chest and no tenderness Resp Effort & Inspection: normal respiratory effort and able to speak in complete sentences Auscultation: clear to auscultation bilaterally Cardio Rate: regular rate Rhythm: regular rhythm GI Inspection: normal to inspection Palpation: soft, not firm, not rigid and tender in the epigastrum (very minimal ) Auscultation: normal bowel sounds Back/Spine/Pelvis Thoracic/Lumbar Spine: thoracic and lumbar spine normal to inspection Pelvis: no pain with anterior-posterior compression Skin General skin exam: no rashes or lesions noted Neuro General: patient alert, patient awake and patient oriented x3 Cognition: normal cognition Speech: speech normal Motor: muscle tone normal throughout Sensory Exam: no sensory deficits noted Extrem General: normal to inspection, full ROM, capillary refill normal, no calf tenderness bilaterally and no edema Psych Appearance: grossly normal Mental Status: mental status grossly normal Speech and Movement: speech and movement normal Affect: normal affect Course Vital Signs Vital signs: Vital Signs Temperature 97.7 F 12/19/19 08:52 Pulse 87 12/19/19 08:52 Respiratory Rate 16 12/19/19 08:52 Blood Pressure 127/74 12/19/19 08:52 Pulse Oximetry 97 12/19/19 08:52 Temperature 97.7 F 12/19/19 08:52 Temperature Source Skin 12/19/19 08:52 Pulse 87 12/19/19 08:52 Respiratory Rate 16 12/19/19 08:52 Respiratory Effort 12/19/19 08:55 Blood Pressure 127/74 12/19/19 08:52 Blood Pressure Position Sitting 12/19/19 08:52 Pulse Oximetry 97 12/19/19 08:52 Oxygen Delivery Method Room Air 12/19/19 08:52 Oxygen Flow Rate 0 12/19/19 08:52 Pain Level 4 12/19/19 08:52
[2019-12-19] MEDS: FAMOTIDINE 20 MG/50 ML BAG 200 MG IVPB (09:24)
[2019-12-19] MEDS: Ondansetron 4 MG/2 ML VIAL IVP (09:25)
[2019-12-19] MEDS: Normal Saline Flush 10 ML SYR IVP ×2 (09:26→10:36)
[2019-12-19] MEDS: Normal Saline 1,000 ML 1000 ML IV (09:26)
[2019-12-19 09:37] LABS: Abs Immature Grans 0.03 10^3/uL (0.0-0.06); Absolute Basophil Count 0.03 10^3/uL (0.0-0.2); Absolute Eosinophil Count 0.33 10^3/uL (0.0-0.7); Absolute Lymphocyte Count 1.63 10^3/uL (1.2-3.4); Absolute Monocyte Count 0.39 10^3/uL (0.1-0.8); Basophils % 0.4; Eosinophils % 4.8; HCT 43.1 % (36.0-46.0); HGB 14.4 g/dL (11.2-15.7); Immature Grans % 0.4; Lymphocytes % 23.6; MCH 30.3 pg (27.0-33.0); MCHC 33.4 % (32.0-36.0); MCV 90.5 fL (80-95); MPV 9.3 fL (8.0-11.0); Monocytes % 5.6; Neutrophils % 65.2; Nucleated RBC 0 %; Platelet Count 284 10^3/uL (130-400); RBC 4.76 10^6/uL (3.93-5.22); RDW 12.1 % (11.7-14.6); WBC 6.91 10^3/uL (4.4-10.8)
[2019-12-19 10:06] LABS: ALT 24 U/L (14-59); AST 18 U/L (15-37); Albumin 4.1 g/dL (3.4-5.0); Alkaline Phosphatase 86 U/L (46-116); Anion Gap 10.5 mmol/L (3-11); BUN 9 mg/dL (7-18); Bilirubin, Total 0.4 mg/dL (0.2-1.0); CO2 26.5 mmol/L (21.0-32.0); CREATININE 0.84 mg/dL (0.55-1.02); Calcium 9.1 mg/dL (8.5-10.1); Chloride 102 mmol/L (98-107); Glucose 127 mg/dL (74-106); Lipase 421 U/L (73-393); Potassium 3.8 mmol/L (3.5-5.1); Sodium 139 mmol/L (136-145); Total Protein 7.3 g/dL (6.4-8.2)
--- NOTE | 2019-12-19 10:15 | DI.US_ITS ---
EXAM: US ABDOMEN LIMITED CLINICAL HISTORY: epigastric pain, vomiting, r/o cholecystitis TECHNIQUE: Ultrasound abdomen performed using standard protocol. COMPARISON: No exams were available for comparison FINDINGS: LIVER: Normal size and echogenicity. No focal liver lesions are seen.. GALLBLADDER: No evidence of cholelithiasis. No evidence of wall thickening. No pericholecystic fluid identified. OSPINA'S SIGN: Negative. BILIARY SYSTEM: No intrahepatic or extrahepatic biliary ductal dilation. Right KIDNEY: Kidneys are symmetric in size. No evidence of renal calculi. No evidence of hydronephro sis. No renal mass or cyst identified. PANCREAS: Normal where visualized. ABDOMINAL AORTA AND IVC: Visualized portions normal caliber. ASCITES: None seen. IMPRESSION: Normal sonographic appearance of the right upper abdomen. DATA REPOSITORY:
[2019-12-19] MEDS: ACETAMINOPHEN 1,000 MG/100 ML BTL 400 MG IVPB (10:36)
[2019-12-19] MEDS: Prochlorperazine 10 MG/2 ML VIAL IVP (10:36)
[2019-12-19 10:39] LABS: HCG Qual (Serum) Negative
[2019-12-19 12:14] VITALS: BP 103/54; PULSE 78; RESP 16; TEMP 37.1; O2SAT 97
--- NOTE | 2019-12-19 12:22 | NUR.NOTE ---
Nursing Note: Referral to [facility] was faxed. Nikki Best
== END 2019-12-19 12:15 | disposition home or self-care (01) ==
PROVIDERS: Emergency Provider Physician Assistant; PCP Nurse Practitioner Family
DX: R11.2 Nausea with vomiting, unspecified (principal); R10.13 Epigastric pain; R19.7 Diarrhea, unspecified
CPT/HCPCS: 36415; 80053; 83690; 96361; 96365; 96367; 96375; 99284; 76705; 84703; 85025; J0131; J0780; J2405

== ENCOUNTER 2019-12-21 08:38 | Emergency (ER) | payer MEDICAID, SELFPAY ==
[2019-12-21] VITALS (17 sets, daily range): BP systolic 113–166; BP diastolic 60–79; PULSE 52–86; RESP 10–27; TEMP 36.5; O2SAT 89–100
--- NOTE | 2019-12-21 08:43 | ED.GENADUL_ITS ---
Discharge Plan Disposition Patient Disposition: HOME Condition: Improving Discharge Details Clinical Impression: Colitis Primary Care Provider: Christina Brock ED Provider: Ghanshyam Moser Home Meds and New Rx's Prescriptions: Continued sertraline 100 MG tablet 200 mg PO HS RF: 0 quetiapine [Seroquel] 100 MG tablet 150 mg PO HS RF: 0 dextroamphetamine-amphetamine [Adderall] 20 MG tablet 20 mg PO TID RF: 0 albuterol sulfate 90 mcg/actuation HFA aerosol inhaler 2 puff IH Q4H PRN (Reason: shortness of breath or wheezing) Qty: 8 RF: 2 prochlorperazine maleate [Compazine] 10 mg tablet 10 mg PO TID PRN (Reason: nausea and vomiting) Qty: 7 RF: 0 albuterol sulfate 90 mcg/actuation HFA aerosol inhaler 2 puff IH Q6H PRN (Reason: shortness of breath or wheezing) Qty: 8 RF: 0 famotidine [Pepcid] 20 mg tablet 20 mg PO DAILY Qty: 14 RF: 0 promethazine [Promethegan] 12.5 mg suppository 12.5 mg OR Q6H PRN (Reason: nausea and vomiting) Qty: 12 RF: 0 Discharge Instructions Additional Instructions: Observe a bland diet. Small, frequent sips of fluid so that she maintain good hydration. You should pursue the previously initiated referral to surgery clinic for recheck. Continue your regular medication. Please have divided Zofran if needed for nausea. Medical Decision Making 29-year-old female presents for persistent vomiting. She was seen on November 26 in the emergency department as well as December 18 in the emergency department for similar. She had a CT of the abdomen and pelvis on the November visit as well as an ultrasound of the right upper quadrant on December 18. She was noted on the latter visit to have a lipase of 421. Today, she states she has vomiting that began last evening. She has been unable to fill recent prescriptions. She has not had a fever, no suspicious food contacts, and no known sick contacts. She is anxious with dry heaves as I walked into the room. Her abdomen is soft but mildly diffusely tender. Differential diagnosis would include pancreatitis, gastritis, cyclical vomiting syndrome. IV access established, patient given fluids and medications, for for laboratory testing and urinalysis. Labs will note mild hypokalemia of 3.2, anion gap of 14, creatinine of 1.0 with a BUN of 12. Normal LFTs. Following a liter of fluid, Ativan, Phenergan, Zofran, Protonix patient had ongoing burning upper abdominal pain and dry heaves. Patient was given parenteral analgesia and referred for CT imaging. She had improvement of her discomfort following the administration of analgesic. CT: Diffuse mucosal thickening of the colon. Mild mucosal thickening of the gastric antrum and pylorus. Small hiatal hernia. Findings likely reflect colitis. No abscess or abnormal fluid collection. Nondilated appendix with adjacent reactive stranding. Patient able to drink apple juice and felt significantly better. She has no further abdominal pain. I will refill her antiemetics that were previously prescribed and also discharge her with a small number of Zofran to be used at home. She will follow-up in general surgery clinic as previously scheduled. Lab Data Lab results reviewed: Yes I reviewed the patient's lab results. Labs: Laboratory Results - last 24 hr 12/21/19 12/21/19 12/21/19 09:00 09:00 09:20 WBC 8.74 RBC 4.85 Hgb 14.8 Hct 44.4 MCV 91.5 MCH 30.5 MCHC 33.3 RDW 12.0 Plt Count 297 MPV 9.0 Immature Gran % 0.2 Neutrophils % 65.4 Lymphocytes % 25.4 Monocytes % 5.3 Eosinophils % 3.4 Basophils % 0.3 Nucleated RBC % 0 Absolute Neutrophils 5.71 Absolute Lymphocytes 2.22 Absolute Monocytes 0.46 Absolute Eosinophils 0.30 Absolute Basophils 0.03 Sodium 142 Potassium 3.2 L Chloride 104 Carbon Dioxide 23.5 Anion Gap 14.5 H BUN 12 Creatinine 1.04 H Estimated GFR/1.73 m2 >= 60.00 Glucose 128 H Calcium 8.9 Magnesium 1.8 Total Bilirubin 0.4 AST 17 ALT 21 Alkaline Phosphatase 80 Total Protein 7.5 Albumin 4.1 Amylase 76 Lipase 114 Urine Color Urine Clarity Urine pH Ur Specific Baring Urine Protein Urine Ketones Urine Blood Urine Nitrite Urine Bilirubin Urine Urobilinogen Ur Leukocyte Esterase Urine Glucose Urine Opiates Screen Negative Urine Methadone Screen Negative Ur Barbiturates Screen Negative Ur Tricyclics Screen Positive A Ur Amphetamines Screen Negative U Benzodiazepines Scrn Negative Urine Cocaine Screen Negative Ur THC Screen Positive A 10/04/20 09:20 WBC RBC Hgb Hct MCV MCH MCHC RDW Plt Count MPV Immature Gran % Neutrophils % Lymphocytes % Monocytes % Eosinophils % Basophils % Nucleated RBC % Absolute Neutrophils Absolute Lymphocytes Absolute Monocytes Absolute Eosinophils Absolute Basophils Sodium Potassium Chloride Carbon Dioxide Anion Gap BUN Creatinine Estimated GFR/1.73 m2 Glucose Calcium Magnesium Total Bilirubin AST ALT Alkaline Phosphatase Total Protein Albumin Amylase Lipase Urine Color Yellow Urine Clarity Sl cloudy Urine pH 8.5 H Ur Specific Baring 1.025 Urine Protein Negative Urine Ketones Negative Urine Blood Negative Urine Nitrite Negative Urine Bilirubin Negative Urine Urobilinogen 0.2 Ur Leukocyte Esterase Negative Urine Glucose Negative Urine Opiates Screen Urine Methadone Screen Ur Barbiturates Screen Ur Tricyclics Screen Ur Amphetamines Screen U Benzodiazepines Scrn Urine Cocaine Screen Ur THC Screen HPI General Mode of arrival: ambulatory . Date/Time Provider Initiated Documentation: 12/21/19 08:38 . Limitations to Documentation: no limitations . Information obtained by: patient . History of Present Illness 29 year old F presents to the emergency department with the chief complaint of Persistent vomiting, described as moderate and similar to prior episodes, Quality is described as dull, and is localized to the abdomen. Patient reports no radiation. Patient started experiencing this week(s) and it has been intermittent. Rest improves symptom(s), Eating worsens symptoms . Patient notes denies fever/chills and headaches. Related Data Home Medications Medication Instructions Recorded Confirmed dextroamphetamine-amphetamine 20 mg PO TID 06/09/17 12/21/19 [Adderall] quetiapine [Seroquel] 150 mg PO HS 06/09/17 12/21/19 sertraline 200 mg PO HS 06/09/17 12/21/19 albuterol sulfate 2 puff IH Q4H PRN #8 gm 04/18/18 12/21/19 albuterol sulfate 2 puff IH Q6H PRN #8 gm 05/09/18 12/21/19 prochlorperazine maleate 10 mg PO TID PRN #7 tab 12/19/19 12/21/19 [Compazine] famotidine [Pepcid] 20 mg PO DAILY #14 tab 12/21/19 promethazine [Promethegan] 12.5 mg OR Q6H PRN #12 ea 12/21/19 Previous Rx's Medication Instructions Recorded albuterol sulfate 2 puff IH Q4H PRN #8 gm 04/18/18 albuterol sulfate 2 puff IH Q6H PRN #8 gm 05/09/18 prochlorperazine maleate 10 mg PO TID PRN #7 tab 12/19/19 [Compazine] famotidine [Pepcid] 20 mg PO DAILY #14 tab 12/21/19 promethazine [Promethegan] 12.5 mg OR Q6H PRN #12 ea 12/21/19 Allergies Allergy/AdvReac Type Severity Reaction Status Date / Time No Known Allergies Allergy Unverified 12/21/19 09:07 General ALYSE: 3 Review of Systems Narrative: Unable to fill recent prescriptions. Denies any specific food as an inciting agent. No known sick contacts, no travel. Denies chest pain or difficulty breathing. No syncope. 6 systems reviewed and otherwise negative. [facility] Medical History ADD (attention deficit disorder) Anxiety Asthma Depression Ovarian cyst Pap smear vag w [facility]- Social History Smoking/Tobacco Use Status: Former Tobacco Use Alcohol Intake: current Alcohol Intake frequency: holidays/special occasions only Drug use: Occasionally Substance use type: marijuana Do you feel safe at home: Yes Do you feel safe in your relationship?: Yes Exam Narrative Exam Narrative: GEN: awake, alert, oriented 3. Conversant with intermittent vomiting. HEAD: Normocephalic, atraumatic ENT: Mucous membranes moist, oropharynx unremarkable, External ear exam unremarkable EYES: PERRL, EOMI NECK: Full ROM, no OZZIE, no menigismus CHEST/RESP: Nontender, clear to auscultation bilateral, no wheeze/rhonchi/rales CARDIOVASCULAR: RRR, no murmur, rub ashley. 2+ Rad pulse bilateral ABDOMEN: Soft, minimal tenderness, no mass. +Bowel sounds EXT: Full ROM, no edema, no rash Neuro: Grossly normal neurologic exam, conversant, interactive. Psych: Speech fluent, thoughts congruent, affect anxious
[2019-12-21 09:09] LABS: Abs Immature Grans 0.02 10^3/uL (0.0-0.06); Absolute Basophil Count 0.03 10^3/uL (0.0-0.2); Absolute Lymphocyte Count 2.22 10^3/uL (1.2-3.4); Absolute Monocyte Count 0.46 10^3/uL (0.1-0.8); Absolute Neutrophil Count 5.71 10^3/uL (1.2-6.7); Basophils % 0.3; Eosinophils % 3.4; HCT 44.4 % (36.0-46.0); HGB 14.8 g/dL (11.2-15.7); Immature Grans % 0.2; Lymphocytes % 25.4; MCH 30.5 pg (27.0-33.0); MCHC 33.3 % (32.0-36.0); MCV 91.5 fL (80-95); Monocytes % 5.3; Neutrophils % 65.4; Nucleated RBC 0 %; Platelet Count 297 10^3/uL (130-400); RBC 4.85 10^6/uL (3.93-5.22); RDW-SD 40.5 fL; WBC 8.74 10^3/uL (4.4-10.8)
[2019-12-21] MEDS: LORazepam 2 MG/ML VIAL 0.5 MG IVP ×2 (09:09→09:21)
[2019-12-21] MEDS: Normal Saline 1,000 ML 1000 ML IV ×2 (09:09)
[2019-12-21] MEDS: Ondansetron 4 MG/2 ML VIAL IVP ×2 (09:10→09:48)
[2019-12-21 09:24] LABS: ALT 21 U/L (14-59); AST 17 U/L (15-37); Albumin 4.1 g/dL (3.4-5.0); Alkaline Phosphatase 80 U/L (46-116); Amylase 76 U/L (25-115); Anion Gap 14.5 mmol/L (3-11); BUN 12 mg/dL (7-18); Bilirubin, Total 0.4 mg/dL (0.2-1.0); CO2 23.5 mmol/L (21.0-32.0); CREATININE 1.04 mg/dL (0.55-1.02); Calcium 8.9 mg/dL (8.5-10.1); Chloride 104 mmol/L (98-107); Glucose 128 mg/dL (74-106); Lipase 114 U/L (73-393); Magnesium 1.8 mg/dL (1.8-2.4); Potassium 3.2 mmol/L (3.5-5.1); Sodium 142 mmol/L (136-145); Total Protein 7.5 g/dL (6.4-8.2)
[2019-12-21 09:26] LABS: Bilirubin Negative (Negative); Blood Negative (Negative); Clarity Sl Cloudy (Clear); Glucose Negative (Negative); Ketones Negative (Negative); Leukocyte Esterase Negative (Negative); Nitrite Negative (Negative); Specific Gravity 1.025 (1.005-1.025); Urobilinogen 0.2 EU/dL (Up TO 0.2); pH 8.5 (5-8)
[2019-12-21 09:40] LABS: *AMPHETAMINES SCREEN URINE Negative (Negative); *BARBITURATES SCREEN URINE Negative (Negative); *BENZODIAZEPINES SCREEN URINE Negative (Negative); Cannabinoids THC POSITIVE (Negative); Cocaine Screen,Urine Negative (Negative); METHADONE URINE SCREEN Negative (Negative); OPIATES URINE SCREEN Negative (Negative)
[2019-12-21 09:46] LABS: Tricyclic Antidepressants POSITIVE (Negative)
[2019-12-21] MEDS: Pantoprazole 40 MG VIAL IVP (09:48)
[2019-12-21] MEDS: POTASSIUM CHLORIDE 20 MEQ/100 ML BAG 50 MEQ IVPB (10:01)
--- NOTE | 2019-12-21 10:15 | DI.CT_ITS ---
EXAM: CT ABDOMEN PELVIS W INDICATION: Upper abdomen pain vomiting. COMPARISON: CT CT ABDOMEN PELVIS W from 11/27/2019 TECHNIQUE: FINDINGS: CT examination of the abdomen and pelvis was performed with a bolus infusion of 100 cc of Omnipaque 3 50. Images obtained through the lung bases are unremarkable. Liver, spleen and pancreas appear normal . Gallbladder and bile ducts are CT normal. Adrenals and kidneys are unremarkable. Urinary bladder unremarkable. Abdominal aorta is of normal diameter and no major vascular abnormality is seen. No abdominal wall hernia. No abdominal or pelvic adenopathy. [employer] structures appear intact with incidental note made of IUD in place. There is a small quantity of free fluid in the pelvis which is nonspecific. Appendix is normal. No e vidence of diverticulitis or bowel obstruction. There is a question of colonic wall thickening particularly involving portions of descending colon an d hepatic flexure, consider colitis. Note is also made of question of edema of the wall of the gastric antrum, consider gastritis. IMPRESSION: Findings raising the possibility of colitis and additionally, findings raising the possibility of an antral gastritis. Please correlate clinically. RADIATION DOSE DELIVERED: 727.56mGy.cm Total DLP 727.56mGy.cm Total DLP
[2019-12-21] MEDS: HYDROmorphone 2 MG/ML VIAL 1 MG IVP (10:25)
[2019-12-21] MEDS: Omnipaque 350 MG/ML 100 ML BTL IV (10:38)
[2019-12-21] MEDS: Normal Saline - Diluent 50 ML VIAL IV (10:39)
[2019-12-21] MEDS: Normal Saline Flush 10 ML SYR IVP (10:39)
--- NOTE | 2019-12-21 11:32 | DI.VRAD_ITS ---
PROCEDURE INFORMATION: Exam: CT Abdomen And Pelvis With Contrast Exam date and time: 12/21/2019 10:46 AM Age: 29 years old Clinical indication: Abdominal pain TECHNIQUE: Imaging protocol: Computed tomography of the abdomen and pelvis with intravenous contrast. COMPARISON: CT ABDOMEN PELVIS W 11/27/2019 10:41 AM FINDINGS: Mediastinal space: There is a small hiatal hernia. There is a 5 mm linear density in anterior middle lung lobe which could reflect scar or atelectasis. Liver: Normal. No mass. Gallbladder and bile ducts: Normal. No calcified stones. No ductal dilation. Pancreas: Normal. No ductal dilation. Spleen: Normal. No splenomegaly. Adrenals: Normal. No mass. Kidneys and ureters: Normal. No hydronephrosis. Stomach and bowel: There is diffuse mucosal thickening of colon, most pronounced in hepatic flexure and transverse colon with pericolonic fat stranding. Appendix is not dilated (image 28 series 7). There is mild stranding adjacent to appendix which is felt to be reactive. Small bowel is within normal limits in size. There is mild mucosal thickening of the gastric antrum and pylorus , remaining gastric lumen is not distended. Appendix: See Stomach and bowel finding. Intraperitoneal space: There is small amount of fluid within pelvis. Vasculature: Unremarkable. No abdominal aortic aneurysm. Lymph nodes: Unremarkable. No enlarged lymph nodes. Urinary bladder: Unremarkable as visualized. Reproductive: Uterus is anteverted. There is a T-shaped intrauterine contraceptive device within the endometrial cavity Adnexa are normal.. Bones/joints: Visualized osseous structures demonstrates no acute abnormality. There is no focal lytic or blastic lesion. Soft tissues: There is small fat containing umbilical hernia. Other findings: There is small amount of fluid within pelvis. IMPRESSION: 1. Diffuse colonic mucosal thickening with pericolonic fat stranding most pronounced in the hepatic flexure and transverse colon. The findings likely reflect colitis. There is no abscess or abnormal fluid collection. There is mild fat stranding adjacent to nondilated appendix which is likely reactive. 2. Mild mucosal thickening of gastric antrum could reflect gastritis. 3. Intrauterine contraceptive device within the uterus. 4. Small hiatal hernia. Dictated and Authenticated by: Andrews Han MD. Ordering:OCTAVIA Morrissey MD
== END 2019-12-21 12:55 | disposition home or self-care (01) ==
PROVIDERS: Emergency Provider Emergency Medicine; PCP Nurse Practitioner Family
DX: E87.2 Acidosis (principal); K52.9 Noninfective gastroenteritis and colitis, unspecified; R10.10 Upper abdominal pain, unspecified
CPT/HCPCS: 36415; 80053; 80307; 81025; 83690; 96361; 96365; 96366; 96368; 96375; 99285; 74177; 81003; 82150; 83735; 85025; 99284; J2060; J2405; J3480; J3490

== ENCOUNTER 2019-12-31 01:07 | Outpatient (CLI) | payer MEDICAID, SELFPAY | END 2019-12-31 01:27 | PROVIDERS: PCP Nurse Practitioner Family; Visit Provider Surgery | DX: R69 Illness, unspecified (principal) ==

== ENCOUNTER 2020-01-22 15:49 | Emergency (ER) | payer MEDICAID, SELFPAY ==
[2020-01-22 15:53] VITALS: BP 118/78; PULSE 67; RESP 22; TEMP 36.6; O2SAT 100
--- NOTE | 2020-01-22 16:03 | ED.GENADUL_ITS ---
Discharge Plan Disposition Patient Disposition: HOME Condition: Stable Discharge Details Clinical Impression: Vomiting Primary Care Provider: Christina Brock ED Provider: An Demarco Home Meds and New Rx's Prescriptions: New ondansetron 4 mg tablet,disintegrating 4 mg PO Q8H PRN (Reason: nausea and vomiting) 4 Days Qty: 14 RF: 0 capsaicin [Arthritis Pain Relief(capsaic)] 0.1 % cream 1 applic topical BID PRN (Reason: Nausea Vomiting) Qty: 42.5 RF: 0 Continued sertraline 100 MG tablet 200 mg PO HS RF: 0 quetiapine [Seroquel] 100 MG tablet 150 mg PO HS RF: 0 dextroamphetamine-amphetamine [Adderall] 20 MG tablet 20 mg PO TID RF: 0 albuterol sulfate 90 mcg/actuation HFA aerosol inhaler 2 puff IH Q4H PRN (Reason: shortness of breath or wheezing) Qty: 8 RF: 2 prochlorperazine maleate [Compazine] 10 mg tablet 10 mg PO TID PRN (Reason: nausea and vomiting) Qty: 7 RF: 0 albuterol sulfate 90 mcg/actuation HFA aerosol inhaler 2 puff IH Q6H PRN (Reason: shortness of breath or wheezing) Qty: 8 RF: 0 famotidine [Pepcid] 20 mg tablet 20 mg PO DAILY Qty: 14 RF: 0 promethazine [Promethegan] 12.5 mg suppository 12.5 mg NM Q6H PRN (Reason: nausea and vomiting) Qty: 12 RF: 0 Discharge Instructions Instructions: Cyclic Vomiting Syndrome (ED) Additional Instructions: Follow up with primary care provider in 3-5 days. Return to ED sooner if any worsening or concerns. Increase oral fluids. Take medications as directed. Follow-up with general surgery as previously instructed. Referrals: Sophie Andres MD [ [facility] STAFF PHYSICIAN] - Christina Brock [Primary Care Provider] - Discharge Data Discharge Date/Time-TO BE ENTERED AT DEPARTURE: 01/22/20 18:18 Medical Decision Making 29-year-old female presents to ED with chief complaint of vomiting and diarrhea. Patient was seen for similar November and December for where a CT of the pelvis showed possible colitis. Patient states the diarrhea began a few days ago and vomiting began today. Unable to keep anything down. She has tried Phenergan and prochlorperazine prior to arrival. With little to no relief. She has a history of ADD, anxiety, asthma depression, ovarian cyst. She does use marijuana. At this time work-up ordered including labs, normal saline with 4 mg of Zofran IV. 1634: Patient continues to retch and vomit Phenergan and capsaicin cream transdermal ordered at this time. Informed by pharmacy that the hospital is out of Capzasin cream at this time. Patient was given Phenergan IV, Pepcid, and 0.5 mg of hydromorphone which improved her symptoms. Labs show white blood cell count of 12.01, hemoglobin 15.8, hematocrit 49.5, sodium 142, potassium 3.6, anion gap 14.1, glucose 126, lipase is 104. Patient is much improved prior to discharge. Patient was given a prescription for Zofran and Capzasin cream. Differential diagnosis includes but not limited to gastroenteritis, colitis, cyclical vomiting syndrome, cannabinoid vomiting syndrome. Discussed home care and strict return instructions with patient who verbalized understanding. Placed on a care management list for follow-up with general surgery as noted in previous visits. HPI General Mode of arrival: ambulatory . Date/Time Provider Initiated Documentation: 01/22/20 15:59 . Limitations to Documentation: no limitations . Information obtained by: patient . HPI Narrative: 29-year-old female presents to ED with chief complaint of vomiting and diarrhea. Patient was seen for similar November and December for where a CT of the pelvis showed possible colitis. Patient states the diarrhea began a few days ago and vomiting began today. Unable to keep anything down. She has tried Phenergan and prochlorperazine prior to arrival. With little to no relief. She has a history of ADD, anxiety, asthma depression, ovarian cyst. She does use marijuana. Related Data Home Medications Medication Instructions Recorded Confirmed dextroamphetamine-amphetamine 20 mg PO TID 06/09/17 12/21/19 [Adderall] quetiapine [Seroquel] 150 mg PO HS 06/09/17 12/21/19 sertraline 200 mg PO HS 06/09/17 12/21/19 albuterol sulfate 2 puff IH Q4H PRN #8 gm 04/18/18 12/21/19 albuterol sulfate 2 puff IH Q6H PRN #8 gm 05/09/18 12/21/19 prochlorperazine maleate 10 mg PO TID PRN #7 tab 12/19/19 12/21/19 [Compazine] famotidine [Pepcid] 20 mg PO DAILY #14 tab 12/21/19 promethazine [Promethegan] 12.5 mg NM Q6H PRN #12 ea 12/21/19 capsaicin [Arthritis Pain 1 applic TOPICAL BID PRN #42.5 g 01/22/20 Relief(capsaic)] ondansetron 4 mg PO Q8H PRN 4 Days #14 tab 01/22/20 Previous Rx's Medication Instructions Recorded albuterol sulfate 2 puff IH Q4H PRN #8 gm 04/18/18 albuterol sulfate 2 puff IH Q6H PRN #8 gm 05/09/18 prochlorperazine maleate 10 mg PO TID PRN #7 tab 12/19/19 [Compazine] famotidine [Pepcid] 20 mg PO DAILY #14 tab 12/21/19 promethazine [Promethegan] 12.5 mg NM Q6H PRN #12 ea 12/21/19 capsaicin [Arthritis Pain 1 applic TOPICAL BID PRN #42.5 g 01/22/20 Relief(capsaic)] ondansetron 4 mg PO Q8H PRN 4 Days #14 tab 01/22/20 Allergies Allergy/AdvReac Type Severity Reaction Status Date / Time No Known Allergies Allergy Unverified 01/22/20 15:56 General Stated Complaint: Nausea/Vomit/Diar ALYSE: 3 Review of Systems Narrative: Constitutional: Negative for weight loss, alert and oriented, well groomed, normal body habitus, appears comfortable. HEENT: Denies trauma, headaches, blurry vision, nasal discharge, sore throat, trouble swallowing. Chest: Denies chest pain, palpitations, irregular rhythm, hypertension. Respiratory: Denies Shortness of breath, cough, hemoptysis. GI: Denies abdominal pain, constipation. Positive nausea vomiting mild amount of diarrhea. : Denies dysuria, hematuria, flank pain, rectal bleeding. Neuro: Denies dizziness, blurry vision, weakness, syncope, headache or facial numbness. Hematologic: Denies easy bruising, intolerance to heat or cold, hair loss. [facility] Medical History ADD (attention deficit disorder) Anxiety Asthma Depression Ovarian cyst Pap smear vag w [facility]- Social History Smoking/Tobacco Use Status: Former Tobacco Use Smoking risk assessment performed?: Yes Alcohol Intake: current Alcohol Intake frequency: holidays/special occasions only Drug use: Occasionally Substance use type: marijuana Do you feel safe at home: Yes Do you feel safe in your relationship?: Yes Exam Narrative Exam Narrative: Constitutional: Alert and oriented x3. Appears stated age. Normal body habitus. Head: Normocephalic, no trauma. Eyes: Pupils PERRLA, Red reflex noted, EOM's intact. Eyelids symmetrical without lesions, discharge, or swelling. ENT: Bilateral TM's WNL, External ear normal to inspection, no mastoid TTP, swelling, or erythema, Nasal turbinates WNL, no nasal discharge. Normal dentition, Posterior pharynx WNL, no exudate. Chest: RRR, Normal S1, S2, distal pulses intact. Resp: Lungs clear to auscultation bilaterally, no wheezes, rales, or rhonchi. Musculoskeletal: Normal gait, 5/5 strength to all four extremities. Skin: No suspicious rashes or lesions. Capillary refill less than 2 sec. Neurologic: Cranial nerves II-XII intact. Alert and oriented x 3. DTR's intact. Hematologic/Lymphatic: No ecchymosis, no lymphadenopathy. Course Vital Signs Vital signs: Vital Signs Temperature 36.6 C 01/22/20 15:53 Pulse 67 01/22/20 15:53 Respiratory Rate 22 01/22/20 15:53 Blood Pressure 118/78 01/22/20 15:53 Pulse Oximetry 100 01/22/20 15:53 Temperature 36.6 C 01/22/20 15:53 Temperature Source Skin 01/22/20 15:53 Pulse 67 01/22/20 15:53 Respiratory Rate 22 01/22/20 15:53 Respiratory Effort 01/22/20 15:56 Blood Pressure 118/78 01/22/20 15:53 Blood Pressure Position Sitting 01/22/20 15:53 Pulse Oximetry 100 01/22/20 15:53 Oxygen Delivery Method Room Air 01/22/20 15:53 Oxygen Flow Rate 0 01/22/20 15:53 Pain Level 8 01/22/20 15:53
[2020-01-22] MEDS: Normal Saline 1,000 ML 1000 ML IV (16:25)
[2020-01-22] MEDS: Ondansetron 4 MG/2 ML VIAL IVP (16:25)
[2020-01-22 16:29] LABS: Abs Immature Grans 0.04 10^3/uL (0.0-0.06); Absolute Basophil Count 0.05 10^3/uL (0.0-0.2); Absolute Eosinophil Count 0.35 10^3/uL (0.0-0.7); Absolute Lymphocyte Count 2.58 10^3/uL (1.2-3.4); Absolute Monocyte Count 0.56 10^3/uL (0.1-0.8); Absolute Neutrophil Count 8.43 10^3/uL (1.2-6.7); Basophils % 0.4; Eosinophils % 2.9; HCT 49.5 % (36.0-46.0); HGB 15.8 g/dL (11.2-15.7); Immature Grans % 0.3; Lymphocytes % 21.5; MCH 29.3 pg (27.0-33.0); MCHC 31.9 % (32.0-36.0); MCV 91.8 fL (80-95); MPV 9.2 fL (8.0-11.0); Monocytes % 4.7; Neutrophils % 70.2; Nucleated RBC 0 %; Platelet Count 327 10^3/uL (130-400); RBC 5.39 10^6/uL (3.93-5.22); RDW 12.5 % (11.7-14.6); RDW-SD 42.4 fL; WBC 12.01 10^3/uL (4.4-10.8)
[2020-01-22 16:48] LABS: ALT 27 U/L (14-59); AST 19 U/L (15-37); Albumin 4.5 g/dL (3.4-5.0); Alkaline Phosphatase 88 U/L (46-116); Anion Gap 14.1 mmol/L (3-11); BUN 8 mg/dL (7-18); Bilirubin, Total 0.4 mg/dL (0.2-1.0); CO2 24.9 mmol/L (21.0-32.0); CREATININE 1.02 mg/dL (0.55-1.02); Calcium 9.4 mg/dL (8.5-10.1); Chloride 103 mmol/L (98-107); Glucose 126 mg/dL (74-106); Lipase 104 U/L (73-393); Magnesium 1.9 mg/dL (1.8-2.4); Potassium 3.6 mmol/L (3.5-5.1); Sodium 142 mmol/L (136-145); Total Protein 8.3 g/dL (6.4-8.2)
[2020-01-22] MEDS: HYDROmorphone 2 MG/ML VIAL 0.5 MG IVP (17:02)
[2020-01-22] MEDS: FAMOTIDINE 20 MG/50 ML BAG 200 MG IVPB (17:21)
--- NOTE | 2020-01-22 18:07 | NUR.NOTE ---
Nursing Note: Referral faxed to [facility] for follow up.Nikki Best
[2020-01-22 18:12] VITALS: BP 100/62; PULSE 66; RESP 17; TEMP 36.6; O2SAT 100
== END 2020-01-22 18:18 | disposition home or self-care (01) ==
LOC: ER 18:11
PROVIDERS: Emergency Provider Registered Nurse Emergency; PCP Nurse Practitioner Family
DX: R11.10 Vomiting, unspecified (principal); R19.7 Diarrhea, unspecified; F12.10 Cannabis abuse, uncomplicated
CPT/HCPCS: 36415; 80053; 81025; 83690; 96361; 96365; 96367; 96375; 99284; 81003; 83735; 85025; 99283; J2405

== ENCOUNTER 2020-02-03 15:34 | Outpatient (REF) | payer MEDICAID, SELFPAY ==
--- NOTE | 2020-02-03 15:00 | PAPFT_PTH ---
PATIENT: Ashley Islas LOC: [facility] U#:[id number] AGE/SX: 29/F ROOM: RE02/03/[address]: Christina Brock : 1990 BED: DIS: 02/03/2020 SPEC #: [id number] RECD: 02/03/20 17:54 STATUS: RODDY REShreyas #: [id number] MONA: 02/03/20 15:[address]: Christina Brock DEPT: [facility] Cytology RECD BY: Yanira Riddel Tissues: 1 - CX/ENDOCX FOR PAP SMEARS Procedures: PAP THIN PREP/UVM Screening HPV DNA PROBE Comments: [id number] ([facility])
== END 2020-02-03 15:54 ==
LOC: NCHCN 15:34
PROVIDERS: PCP Nurse Practitioner Family; Visit Provider Nurse Practitioner Family
DX: Z00.00 Encounter for general adult medical examination without abnormal findings (principal); Z12.4 Encounter for screening for malignant neoplasm of cervix; Z11.51 Encounter for screening for human papillomavirus (HPV)
CPT/HCPCS: 88142; 87624

== ENCOUNTER 2020-05-09 14:52 | Emergency (ER) | payer MEDICAID, SELFPAY ==
[2020-05-09] VITALS (27 sets, daily range): BP systolic 116–141; BP diastolic 68–93; PULSE 58–78; RESP 16–18; TEMP 36; O2SAT 95–100
--- NOTE | 2020-05-09 14:53 | ED.GENADUL_ITS ---
Discharge Plan Disposition Patient Disposition: HOME Condition: Good Discharge Details Clinical Impression: Nausea & vomiting Primary Care Provider: Christina Brock ED Provider: Yanira Beckman Home Meds and New Rx's Prescriptions: New promethazine 25 mg tablet 25 mg PO TID PRNQty: 10 RF: 0 capsaicin 0.1 % cream 1 applic topical TID Qty: 42.5 RF: 0 No Action sertraline 100 MG tablet 200 mg PO HS RF: 0 quetiapine [Seroquel] 100 MG tablet 200 mg PO HS RF: 0 dextroamphetamine-amphetamine [Adderall] 20 MG tablet 20 mg PO TID RF: 0 albuterol sulfate 90 mcg/actuation HFA aerosol inhaler 2 puff IH Q6H PRN (Reason: shortness of breath or wheezing) Qty: 8 RF: 0 Discharge Instructions Additional Instructions: Please follow-up with your primary care physician in 1 to 2 days for reevaluation Stop smoking marijuana as this is likely causing her symptoms You may take Phenergan and capsaicin topically should you have recurrence of symptoms Clear liquid diet as tolerated Return for new or worsening complaints Medical Decision Making <MAME Monroe - Last Filed: 05/09/20 17:17> Patient is a 29-year-old female with past medical history significant for ADHD, anxiety, asthma, depression. Patient presents today with chief complaint of nausea, vomiting and diarrhea with epigastric discomfort. Patient's been here multiple times historically with similar episodes. Labs episode like this was in January of last year. She denies any melena, hematochezia, hematemesis. Denies any fevers or chills. States she is having some epigastric comfort that it feels like my diaphragm. No previous abdominal surgeries. Patient reports she has an IUD inside sexually active. She denies any vaginal discharge. Denies any dysuria, increased frequency urgency. No back pain. On exam, patient appears uncomfortable. Showing emesis bag. Lungs are clear, normal cardiac exam. Her abdomen is significant for epigastric discomfort but no peritoneal findings noted. Negative De Leon sign. No pain in her lower abdomen. No guarding. I did review the patient's chart. She is responded well to Phenergan historically. We will give her Phenergan and Protonix feels IV hydration and reassess. Will obtain baseline labs. Do not see any evidence to suggest a surgical abdomen at this time. Patient in agreement Labs reviewed, no sigfnicant abnormality. At the end of my shift, care transitioned to Yanira Beckman PA-C with reassessement pending. Patient just received her IV Phenergan and is getting protonix and hydration currently. <MAME Clarke - Last Filed: 05/09/20 20:34> Patient's diagnostic labs do not show acute pathology After Haldol, 2 mg, Phenergan, Reglan, and Benadryl, patient is feeling symptomatically improved, she is able to tolerate p.o. She request discharge home at this time Discharge home on capsaicin and Phenergan orally She is given a threshold to return with new or worsening complaints Long discussion regarding smoking cessation HPI <MAME Monroe - Last Filed: 05/09/20 17:17> General Mode of arrival: ambulatory . Date/Time Provider Initiated Documentation: 05/09/20 14:52 . Limitations to Documentation: no limitations . Information obtained by: patient, RN notes reviewed and old records reviewed . History of Present Illness 29 year old F presents to the emergency department with the chief complaint of epigastric pain, N/V/D, described as moderate and similar to prior episodes, with intensity rated at 6. Quality is described as burning, and is localized to the abdomen. Patient reports no radiation. Patient started experiencing this hour(s) (began when she woke up this morning) and it has been constant. No relieving factors improve symptom(s), No exacerbating factors reported . Patient notes loss of appetite and nause a/vomiting; denies chest pain, cough, diaphoresis, fever/chills, rash and shortness of breath. Patient did receive the following treatments prior to arrival, none Related Data Home Medications Medication Instructions Recorded Confirmed dextroamphetamine-amphetamine 20 mg PO TID 06/09/17 05/09/20 [Adderall] quetiapine [Seroquel] 200 mg PO HS 06/09/17 05/09/20 sertraline 200 mg PO HS 06/09/17 05/09/20 albuterol sulfate 2 puff IH Q6H PRN #8 gm 05/09/18 05/09/20 capsaicin 1 applic TOPICAL TID #42.5 g 02/21/21 promethazine 25 mg PO TID PRN #10 tab 05/09/20 Previous Rx's Medication Instructions Recorded albuterol sulfate 2 puff IH Q6H PRN #8 gm 05/09/18 capsaicin 1 applic TOPICAL TID #42.5 g 05/09/20 promethazine 25 mg PO TID PRN #10 tab 05/09/20 Allergies Allergy/AdvReac Type Severity Reaction Status Date / Time No Known Allergies Allergy Unverified 05/09/20 14:58 General ALYSE: 3 Review of Systems <MAME Monroe - Last Filed: 05/09/20 17:17> Constitutional Constitutional: Reports as per HPI, Denies chills, Denies fatigue, Denies fever(s) and Denies headache(s) ENT Ears, Nose, Mouth, and Throat: Denies headache(s) Cardiovascular Cardiovascular: Reports as per HPI, Denies chest pain and Denies dyspnea Respiratory Respiratory: Reports as per HPI, Denies cough and Denies dyspnea Gastrointestinal Gastrointestinal: Reports as per HPI Musculoskeletal Musculoskeletal: Reports as per HPI and Denies back pain Integumentary/Breasts Skin/Breast: Reports as per HPI and Denies rash Neurologic Neurologic: Reports as per HPI and Denies headache(s) Endocrine Endocrine: Denies fatigue PFSH <MAME Monroe - Last Filed: 05/09/20 17:17> Medical History ADD (attention deficit disorder) Anxiety Asthma Depression Ovarian cyst Pap smear vag w [facility] Social History Smoking/Tobacco Use Status: Former Tobacco Use Smoking risk assessment performed?: Yes Alcohol Intake: current Alcohol Intake frequency: holidays/special occasions only Drug use: Occasionally Substance use type: marijuana Do you feel safe at home: Yes Do you feel safe in your relationship?: Yes Exam <MAME Monroe - Last Filed: 05/09/20 17:17> Const General: cooperative, healthy appearing, comfortable, no acute distress and well developed Nutritional Appearance: average body habitus and well nourished Orientation: alert and awake HENMT Head: normal to inspection Mouth: moist mucous membranes Resp Effort & Inspection: normal respiratory effort, able to speak in complete sentences and no respiratory distress Auscultation: clear to auscultation bilaterally, no rales, no rhonchi and no wheezes Cardio Rate: regular rate Rhythm: regular rhythm Heart Sounds: S1 normal and S2 normal GI Inspection: normal to inspection, no edema, non-distended, no obesity and no visible herniation Palpation: soft, no hepatosplenomegaly, not firm, no guarding, no hernias, no masses, not rigid and tender in the epigastrum; De Leon's sign negative and with no rebound tenderness Percussion: normal to percussion Auscultation: normal bowel sounds Back/Spine/Pelvis Back: no CVA tenderness Skin General skin exam: no rashes or lesions noted Trauma: no lacerations or abrasions Neuro General: patient alert and patient awake Cognition: normal cognition Speech: speech normal Gait: normal gait Psych Appearance: grossly normal and well kempt Mental Status: mental status grossly normal Speech and Movement: speech and movement normal Sign Out <MAME Monroe - Last Filed: 05/09/20 17:17> Sign Out Data: Sign Out Comment: Care transitioned to Yanira Beckman PA-C. Patients labs unremarkable. She is receiving IV hydration. Just finished her IV Phenergan. Receiving protonix. Will need to finish this treatment and be reassessed. Has had similar symptoms historically. No evidence of surgical abdomen on exam. Last updated by Cass Alvarado PA at 05/09/20 15:48
[2020-05-09] MEDS: Normal Saline 1,000 ML 1000 ML IV ×2 (15:15→16:40)
[2020-05-09 15:23] LABS: Abs Immature Grans 0.02 10^3/uL (0.0-0.06); Absolute Basophil Count 0.03 10^3/uL (0.0-0.2); Absolute Eosinophil Count 0.26 10^3/uL (0.0-0.7); Absolute Monocyte Count 0.36 10^3/uL (0.1-0.8); Absolute Neutrophil Count 4.65 10^3/uL (1.2-6.7); Basophils % 0.4; Eosinophils % 3.6; HCT 46.7 % (36.0-46.0); HGB 15.4 g/dL (11.2-15.7); Immature Grans % 0.3; Lymphocytes % 27.3; MCV 94.2 fL (80-95); MPV 9.6 fL (8.0-11.0); Monocytes % 4.9; Neutrophils % 63.5; Nucleated RBC 0 %; Platelet Count 272 10^3/uL (130-400); RBC 4.96 10^6/uL (3.93-5.22); RDW 12.3 % (11.7-14.6); RDW-SD 42.7 fL; WBC 7.32 10^3/uL (4.4-10.8)
[2020-05-09] MEDS: Normal Saline 50 ML (15:28)
[2020-05-09 15:36] LABS: ALT 21 U/L (14-59); AST 16 U/L (15-37); Albumin 4.3 g/dL (3.4-5.0); Alkaline Phosphatase 70 U/L (46-116); Anion Gap 10.8 mmol/L (3-11); BUN 8 mg/dL (7-18); Bilirubin, Total 0.4 mg/dL (0.2-1.0); CO2 25.2 mmol/L (21.0-32.0); CREATININE 0.9 mg/dL (0.55-1.02); Chloride 104 mmol/L (98-107); Glucose 121 mg/dL (74-106); Lipase 129 U/L (73-393); Magnesium 1.9 mg/dL (1.8-2.4); Potassium 3.8 mmol/L (3.5-5.1); Sodium 140 mmol/L (136-145); Total Protein 7.9 g/dL (6.4-8.2)
[2020-05-09] MEDS: Pantoprazole 40 MG VIAL IVP (15:39)
--- NOTE | 2020-05-09 16:12 | NUR.NOTE ---
reports that she is not feeling better and states abd pain is worse:
--- NOTE | 2020-05-09 16:30 | RT.EKG_ITS ---
APPROVED REPORT Exam: Resting ECG Patient Location: E HR:62 bpm ECG Measurements Heart Rate 62 AXIS HI 170 P 55 QRSd 89 QRS 73 QT 421 T 62 QTc 427 Conclusion Sinus rhythm...normal P axis, V-rate 60- 99 I have reviewed and interpreted ECG and agree with software generated interpretation.
[2020-05-09] MEDS: Ketorolac 15 MG/ML VIAL IVP (16:39)
[2020-05-09] MEDS: Haloperidol 5 MG/ML VIAL 2 MG IM/IV (16:39)
[2020-05-09] MEDS: diphenhydrAMINE 50 MG/ML VIAL 25 MG IVP (18:04)
[2020-05-09] MEDS: Metoclopramide 10 MG/2 ML VIAL 5 MG IM (18:07)
--- NOTE | 2020-05-09 18:11 | NUR.NOTE ---
Nursing Note: Documented on wrong chart on IV D/C time, was not for this patient.
== END 2020-05-09 19:40 | disposition home or self-care (01) ==
PROVIDERS: Physician Assistant; Emergency Provider Physician Assistant; PCP Nurse Practitioner Family
DX: R11.2 Nausea with vomiting, unspecified (principal); R10.13 Epigastric pain; F12.90 Cannabis use, unspecified, uncomplicated
CPT/HCPCS: 80053; 81025; 83690; 93005; 96361; 96374; 96375; 99284; 83735; 85025; 93010; J1200; J1630; J1885; J2765

== ENCOUNTER 2021-03-20 14:18 | Emergency (ER) | payer MEDICAID, SELFPAY ==
[2021-03-20] VITALS (66 sets, daily range): BP systolic 82–136; BP diastolic 33–98; PULSE 86–131; RESP 8–29; TEMP 36.6; O2SAT 96–100
[2021-03-20] MEDS: Normal Saline 1,000 ML 1000 ML IV ×2 (14:58→16:10)
[2021-03-20 15:01] LABS: Abs Immature Grans 0.13 10^3/uL (0.0-0.06); Absolute Basophil Count 0.08 10^3/uL (0.0-0.2); Absolute Eosinophil Count 0.29 10^3/uL (0.0-0.7); Basophils % 0.3; Eosinophils % 1.1; HCT 47.9 % (36.0-46.0); HGB 16.1 g/dL (11.2-15.7); Immature Grans % 0.5; Lymphocytes % 6.1; MCH 31.3 pg (27.0-33.0); MCHC 33.6 % (32.0-36.0); MPV 9.5 fL (8.0-11.0); Monocytes % 5.6; Neutrophils % 86.4; Nucleated RBC 0 %; Platelet Count 379 10^3/uL (130-400); RBC 5.15 10^6/uL (3.93-5.22); RDW 11.3 % (11.7-14.6); RDW-SD 38.7 fL
[2021-03-20 15:02] LABS: Bilirubin Negative (Negative); Blood Trace-intact (Negative); Clarity Clear (Clear); Glucose Negative (Negative); Ketones Negative (Negative); Leukocyte Esterase Negative (Negative); Nitrite Negative (Negative); Specific Gravity 1.025 (1.005-1.025); Urobilinogen 0.2 EU/dL (Up TO 0.2); pH 5.5 (5-8)
[2021-03-20 15:11] LABS: Lipase 89 U/L (73-393)
[2021-03-20 15:19] LABS: ALT 41 U/L (14-59); AST 27 U/L (15-37); Albumin 4.2 g/dL (3.4-5.0); Alkaline Phosphatase 73 U/L (46-116); Anion Gap 13.4 mmol/L (3-11); BUN 25 mg/dL (7-18); Bilirubin, Total 0.4 mg/dL (0.2-1.0); CO2 24.6 mmol/L (21.0-32.0); CREATININE 1.1 mg/dL (0.55-1.02); Calcium 8.8 mg/dL (8.5-10.1); Chloride 101 mmol/L (98-107); Estimated GFR 57.93 (mL/min/1.73m2); Glucose 105 mg/dL (74-106); Magnesium 1.8 mg/dL (1.8-2.4); Potassium 4.9 mmol/L (3.5-5.1); Sodium 139 mmol/L (136-145); Total Protein 7.9 g/dL (6.4-8.2); Troponin I < 50 ng/L (<or=60)
[2021-03-20 15:21] LABS: Bacteria Negative HPF (Negative); C & S Indicated? No; Casts Negative LPF (Negative); Crystals Few Amorphous HPF (Negative); Epithelial Cells Many HPF (Negative); Mucus Negative (Negative); RBC Negative HPF (0-2); WBC Negative HPF (0-5)
[2021-03-20 15:23] LABS: Absolute Monocyte Count 1.47 10^3/uL (0.1-0.8); Absolute Neutrophil Count 22.71 10^3/uL (1.2-6.7)
[2021-03-20 15:24] LABS: WBC 26.28 10^3/uL (4.4-10.8)
--- NOTE | 2021-03-20 15:24 | ED.GENADUL_ITS ---
Discharge Plan Disposition Patient Disposition: HOME Condition: Improving Discharge Details Clinical Impression: Abdominal pain, vomiting, and diarrhea Primary Care Provider: Christina Brock ED Provider: Trupti Abreu Home Meds and New Rx's Prescriptions: New sucralfate [Carafate] 1 gram tablet 1 gm PO QACHS Qty: 14 RF: 0 Prilosec 10 mg susp,delayed release for recon 20 mg PO DAILY Qty: 30 RF: 0 ondansetron 4 mg tablet,disintegrating 4 mg PO TID PRN (Reason: nausea and vomiting) Qty: 6 RF: 0 Continued sertraline 100 MG tablet 200 mg PO HS RF: 0 quetiapine [Seroquel] 100 MG tablet 400 mg PO HS RF: 0 dextroamphetamine-amphetamine [Adderall] 20 MG tablet 20 mg PO TID RF: 0 promethazine 25 mg tablet 25 mg PO TID PRNQty: 10 RF: 0 capsaicin 0.1 % cream 1 applic topical TID Qty: 42.5 RF: 0 albuterol sulfate 90 mcg/actuation HFA aerosol inhaler 2 puff IH Q6H PRN (Reason: shortness of breath or wheezing) Qty: 8 RF: 0 Discharge Instructions Instructions: Gastroenteritis (ED), Acute Nausea and Vomiting (ED), Acute Diarrhea (ED), Abdominal Pain (ED) Additional Instructions: Drink plenty of fluids and get plenty of rest. Prescriptions for Zofran for your nausea and prescriptions for Prilosec and Carafate to help with abdominal pain have been sent electronically to your pharmacy. Follow-up with your primary care doctor in 1 week. Return to the emergency department with any worsening or new concerning symptoms such as fever, persistent vomiting, worsening pain or any other concerns. Discharge Data Discharge Physician: Trupti Abreu Medical Decision Making 30-year-old female presents with nausea, vomiting and upper abdominal pain for the past 6 hours. Heart rate elevated to 120s. Patient appears uncomfortable but nontoxic. She has tenderness in her epigastrium but without rigidity or guarding. Differential diagnosis includes gastritis, gastroenteritis, colitis cystitis, cholelithiasis, pancreatitis. We will place an IV, bolus IV fluids, screening labs, urinalysis, CT abdomen and pelvis and give morphine, Zofran and reassess. Labs reviewed. White blood cell count 26. Urinalysis notes blood but no evidence of infection. CT reviewed and unremarkable. Patient reassessed and her symptoms were improved but then returned. She was given a dose of Phenergan and Valium with relief of her nausea but still complaining of pain. Patient was given a GI cocktail, Pepcid, Carafate and had significant relief of her symptoms and is requesting to go home. Discussed at length with patient her results and her significant leukocytosis of 26. Discussed that as she is afebrile without complaint of bloody diarrhea and appears nontoxic, do not see an indication for antibiotic to continue to monitor. Will send home with oxycodone to take for breakthrough pain in addition to Zofran, Pepcid and Carafate sent electronically to her pharmacy. Advised to follow up with the primary care doctor for re-evaluation. She was advised to return here immediately if she develops any persistent fevers, persistent vomiting or worsening pain. Patient states she also ran out of her Seroquel and requested dosing for 2 days. She was given 2 tabs of 400 mg to take nightly. Medical Records Medical records reviewed: Yes I reviewed the patient's medical records. Imaging Data Radiologic Study: Radiologist's impression: CT Abdomen And Pelvis With Contrast Exam date and time: 03/20/2021 15:37 Age: 30 years old Clinical indication: Other: Diffuse abd pain, worse in epigastrum TECHNIQUE: Imaging protocol: Computed tomography of the abdomen and pelvis with contrast. Radiation optimization: All CT scans at this facility use at least one of these dose optimization techniques: automated exposure control; mA and/or kV adjustment per patient size (includes targeted exams where dose is matched to clinical indication); or iterative reconstruction. Contrast material: OMNIPAQUE 350; Contrast volume: 80 ml; Contrast route: INTRAVENOUS (IV); COMPARISON: CT ABDOMEN PELVIS W 12/21/2019 10:36 FINDINGS: Liver: No mass. Gallbladder and bile ducts: No calcified stones. No ductal dilation. Pancreas: No ductal dilation. No masses. Spleen: No splenomegaly or focal lesions. Adrenal glands: No mass. Kidneys and ureters: No renal masses or hydronephrosis bilaterally. Stomach and bowel: Normal CT appearance of the stomach. Normal CT appearance of the duodenum. Minimal distal diverticulosis. No colonic wall thickening for the degree of distension. No focal pathology in the small bowel. Appendix: No evidence of appendicitis. Intraperitoneal space: No free air. No significant fluid collection. Vasculature: No abdominal aortic aneurysm. Lymph nodes: No significantly enlarged lymph nodes. Urinary bladder: The urinary bladder is distended. No urinary bladder wall thickening. Reproductive: IUD in the uterus in the expected position. Bones/joints: No acute fracture. Soft tissues: No suspicious lesions. IMPRESSION: 1. No acute findings. 2. Incidental findings as described. Lab Data Lab results reviewed: Yes I reviewed the patient's lab results. Labs: Laboratory Tests Range/Units 03/20/21 03/20/21 03/20/21 14:50 14:50 14:50 WBC (4.4-10.8) 10^3/uL 26.28 H* RBC (3.93-5.22) 10^6/uL 5.15 Hgb (11.2-15.7) g/dL 16.1 H Hct (36.0-46.0) % 47.9 H MCV (80-95) fL 93.0 MCH (27.0-33.0) pg 31.3 MCHC (32.0-36.0) % 33.6 RDW (11.7-14.6) % 11.3 L Plt Count (130-400) 10^3/uL 379 MPV (8.0-11.0) fL 9.5 Immature Gran % 0.5 Neutrophils % 86.4 Lymphocytes % 6.1 Monocytes % 5.6 Eosinophils % 1.1 Basophils % 0.3 Nucleated RBC % % 0 Absolute Neutrophils (1.2-6.7) 10^3/uL 22.71 H Absolute Lymphocytes (1.2-3.4) 10^3/uL 1.60 Absolute Monocytes (0.1-0.8) 10^3/uL 1.47 H Absolute Eosinophils (0.0-0.7) 10^3/uL 0.29 Absolute Basophils (0.0-0.2) 10^3/uL 0.08 RBC Morphology Normal D-Dimer (<500) ng/mlFEU 233 Sodium (136-145) mmol/L 139 Potassium (3.5-5.1) mmol/L 4.9 Chloride (98-107) mmol/L 101 Carbon Dioxide (21.0-32.0) mmol/L 24.6 Anion Gap (3-11) mmol/L 13.4 H BUN (7-18) mg/dL 25 H Creatinine (0.55-1.02) mg/dL 1.1 H Estimated GFR/1.73 m2 (mL/min/1.73m2) 57.93 Glucose (74-106) mg/dL 105 Calcium (8.5-10.1) mg/dL 8.8 Magnesium (1.8-2.4) mg/dL 1.8 Total Bilirubin (0.2-1.0) mg/dL 0.4 AST (15-37) U/L 27 ALT (14-59) U/L 41 Alkaline Phosphatase (46-116) U/L 73 Troponin I (<or=60) ng/L < 50 Total Protein (6.4-8.2) g/dL 7.9 Albumin (3.4-5.0) g/dL 4.2 Lipase (73-393) U/L Urine Color (Yellow) Urine Clarity (Clear) Urine pH (5-8) Ur Specific [place] (1.005-1.025) Urine Protein (Negative) mg/dL Urine Ketones (Negative) mg/dL Urine Blood (Negative) Urine Nitrite (Negative) Urine Bilirubin (Negative) Urine Urobilinogen (Up TO 0.2) EU/dL Ur Leukocyte Esterase (Negative) Urine RBC (0-2) HPF Urine WBC (0-5) HPF Ur Epithelial Cells (Negative) HPF Urine Crystals (Negative) HPF Urine Bacteria (Negative) HPF Urine Casts (Negative) LPF Urine Mucus (Negative) Ur Culture Indicated? Urine Glucose (Negative) mg/dL Range/Units 03/20/21 03/20/21 14:50 15:00 WBC (4.4-10.8) 10^3/uL RBC (3.93-5.22) 10^6/uL Hgb (11.2-15.7) g/dL Hct (36.0-46.0) % MCV (80-95) fL MCH (27.0-33.0) pg MCHC (32.0-36.0) % RDW (11.7-14.6) % Plt Count (130-400) 10^3/uL MPV (8.0-11.0) fL Immature Gran % Neutrophils % Lymphocytes % Monocytes % Eosinophils % Basophils % Nucleated RBC % % Absolute Neutrophils (1.2-6.7) 10^3/uL Absolute Lymphocytes (1.2-3.4) 10^3/uL Absolute Monocytes (0.1-0.8) 10^3/uL Absolute Eosinophils (0.0-0.7) 10^3/uL Absolute Basophils (0.0-0.2) 10^3/uL RBC Morphology D-Dimer (<500) ng/mlFEU Sodium (136-145) mmol/L Potassium (3.5-5.1) mmol/L Chloride (98-107) mmol/L Carbon Dioxide (21.0-32.0) mmol/L Anion Gap (3-11) mmol/L BUN (7-18) mg/dL Creatinine (0.55-1.02) mg/dL Estimated GFR/1.73 m2 (mL/min/1.73m2) Glucose (74-106) mg/dL Calcium (8.5-10.1) mg/dL Magnesium (1.8-2.4) mg/dL Total Bilirubin (0.2-1.0) mg/dL AST (15-37) U/L ALT (14-59) U/L Alkaline Phosphatase (46-116) U/L Troponin I (<or=60) ng/L Total Protein (6.4-8.2) g/dL Albumin (3.4-5.0) g/dL Lipase (73-393) U/L 89 Urine Color (Yellow) Yellow Urine Clarity (Clear) Clear Urine pH (5-8) 5.5 Ur Specific [place] (1.005-1.025) 1.025 Urine Protein (Negative) mg/dL Negative Urine Ketones (Negative) mg/dL Negative Urine Blood (Negative) Trace-intact H Urine Nitrite (Negative) Negative Urine Bilirubin (Negative) Negative Urine Urobilinogen (Up TO 0.2) EU/dL 0.2 Ur Leukocyte Esterase (Negative) Negative Urine RBC (0-2) HPF Negative Urine WBC (0-5) HPF Negative Ur Epithelial Cells (Negative) HPF Many Urine Crystals (Negative) HPF Few Amorphous Urine Bacteria (Negative) HPF Negative Urine Casts (Negative) LPF Negative Urine Mucus (Negative) Negative Ur Culture Indicated? No Urine Glucose (Negative) mg/dL Negative HPI General Mode of arrival: ambulatory . Date/Time Provider Initiated Documentation: 03/20/21 14:37 . Limitations to Documentation: no limitations . Information obtained by: patient . HPI Narrative: Patient is a 30-year-old female who presents with abdominal pain, vomiting and diarrhea since 9 AM this morning. Patient states she awoke this morning with nausea at 9 AM and then developed mostly upper abdominal pain. She states the pain feels dull and slightly relieved with vomiting or diarrhea but then returned. She states she has had multiple episodes of bilious vomiting now mostly clear and multiple episodes of watery brown diarrhea. She has not taken a medication for her pain. She states she ate chicken and green beans last night but states no other family members are sick. She denies any recent fever, recent antibiotics, recent tr brisa, recent known sick contacts. She has not eaten any recent fried or fatty foods. She denies any urinary symptoms. Related Data Home Medications Medication Instructions Recorded Confirmed dextroamphetamine-amphetamine 20 mg PO TID 06/09/17 03/20/21 [Adderall] quetiapine [Seroquel] 400 mg PO HS 06/09/17 03/20/21 sertraline 200 mg PO HS 06/09/17 03/20/21 albuterol sulfate 2 puff IH Q6H PRN #8 gm 05/09/18 03/20/21 capsaicin 1 applic TOPICAL TID #42.5 g 05/09/20 03/20/21 promethazine 25 mg PO TID PRN #10 tab 05/09/20 03/20/21 omeprazole magnesium [Prilosec] 20 mg PO DAILY #30 ea 03/20/21 ondansetron 4 mg PO TID PRN #6 tab 03/20/21 sucralfate [Carafate] 1 gm PO QACHS #14 tab 03/20/21 Previous Rx's Medication Instructions Recorded albuterol sulfate 2 puff IH Q6H PRN #8 gm 05/09/18 capsaicin 1 applic TOPICAL TID #42.5 g 05/09/20 promethazine 25 mg PO TID PRN #10 tab 05/09/20 omeprazole magnesium [Prilosec] 20 mg PO DAILY #30 ea 03/20/21 ondansetron 4 mg PO TID PRN #6 tab 03/20/21 sucralfate [Carafate] 1 gm PO QACHS #14 tab 03/20/21 Allergies Allergy/AdvReac Type Severity Reaction Status Date / Time No Known Allergies Allergy Unverified 03/20/21 14:34 General Stated Complaint: Abd Prob ALYSE: 3 Review of Systems All systems reviewed & are unremarkable except as noted in HPI and below Constitutional Constitutional: Reports as per HPI, Denies chills and Denies fever(s) Eyes Eyes: Denies blurry vision ENT Ears, Nose, Mouth, and Throat: Denies dizziness, Denies sore throat and Denies throat swelling Cardiovascular Cardiovascular: Denies chest pain and Denies dyspnea Respiratory Respiratory: Denies cough and Denies dyspnea Gastrointestinal Gastrointestinal: Reports abdominal pain, Reports diarrhea and Reports vomiting Genitourinary Genitourinary: Denies hematuria and Denies dysuria Musculoskeletal Musculoskeletal: Denies back pain and Denies numbness Integumentary/Breasts Skin/Breast: Denies lesions and Denies rash Neurologic Neurologic: Denies dizziness, Denies localized weakness and Denies numbness Allergic/Immunologic Allergic/Immunologic: Denies throat swelling PFSH All Active Problems (Updated 03/20/21 @ 20:24 by Trupti Abreu DO) Abdominal pain, vomiting, and diarrhea (Acute) Lead exposure (Acute) Abdominal pain (Acute) Epigastric pain (Acute) ADHD (attention deficit hyperactivity disorder) (Acute 12/13/15) Medical History ADD (attention deficit disorder) Anxiety Asthma Depression Ovarian cyst Pap smear vag w [facility]- Social History Smoking/Tobacco Use Status: Former Tobacco Use Smoking risk assessment performed?: Yes Alcohol Intake: current Alcohol Intake frequency: holidays/special occasions only Drug use: Occasionally Substance use type: marijuana Do you feel safe at home: Yes Do you feel safe in your relationship?: Yes Exam Const General: cooperative and uncomfortable Orientation: alert, awake and oriented x3 HENMT Head: normal to inspection Face and sinus: normal facial exam Eyes General: appearance normal, both eyes and all related structures EOM: EOM intact bilaterally Neck Neck: normal visual inspection and No submandibular swelling Lymphatic: no lymphadenopathy noted Chest Chest: normal inspection of the chest and no tenderness Resp Effort & Inspection: normal respiratory effort and able to speak in complete sentences Auscultation: clear to auscultation bilaterally Cardio Rate: regular rate Rhythm: regular rhythm GI Inspection: normal to inspection Palpation: soft, not firm, not rigid and tender in the epigastrum, in the LUQ and in the RUQ Auscultation: hyperactive bowel sounds Skin General skin exam: no rashes or lesions noted Neuro General: patient alert, patient awake and patient oriented x3 Cognition: normal cognition Speech: speech normal Motor: muscle tone normal throughout Sensory Exam: no sensory deficits noted Extrem General: normal to inspection, full ROM, capillary refill normal, no calf tenderness bilaterally and no edema Psych Appearance: grossly normal Mental Status: mental status grossly normal Speech and Movement: speech and movement normal Affect: normal affect Course Vital Signs Vital signs: Vital Signs Temperature 97.9 F 03/20/21 14:28 Pulse 122 H 03/20/21 14:28 Respiratory Rate 14 03/20/21 14:28 Blood Pressure 136/96 H 03/20/21 14:28 Pulse Oximetry 98 03/20/21 14:28 Temperature 97.9 F 03/20/21 14:28 Temperature Source Temporal Artery Scan 03/20/21 14:28 Pulse 95 H 03/20/21 15:00 Pulse 100 H 03/20/21 15:10 Respiratory Rate 12 03/20/21 15:10 Respiratory Effort Non-Labored 03/20/21 14:31 Blood Pressure 82/69 L 03/20/21 15:00 Blood Pressure Mean 72 03/20/21 15:00 Blood Pressure Position Sitting 03/20/21 14:28 Pulse Oximetry 100 03/20/21 15:10 Oxygen Delivery Method Room Air 03/20/21 14:28 Oxygen Flow Rate 0 03/20/21 14:28 Pain Level 7 03/20/21 14:28 Lab/Test Results Lab/Test Results: Laboratory Tests Range/Units 03/20/21 03/20/21 14:50 15:00 Lipase (73-393) U/L 89 Urine Color (Yellow) Yellow Urine Clarity (Clear) Clear Urine pH (5-8) 5.5 Ur Specific [place] (1.005-1.025) 1.025 Urine Protein (Negative) mg/dL Negative Urine Ketones (Negative) mg/dL Negative Urine Blood (Negative) Trace-intact H Urine Nitrite (Negative) Negative Urine Bilirubin (Negative) Negative Urine Urobilinogen (Up TO 0.2) EU/dL 0.2 Ur Leukocyte Esterase (Negative) Negative Urine RBC (0-2) HPF Negative Urine WBC (0-5) HPF Negative Ur Epithelial Cells (Negative) HPF Many Urine Crystals (Negative) HPF Few Amorphous Urine Bacteria (Negative) HPF Negative Urine Casts (Negative) LPF Negative Urine Mucus (Negative) Negative Ur Culture Indicated? No Urine Glucose (Negative) mg/dL Negative POC- Test(urine) Negative PAWSS Have you Been Recently Intoxicated or Drunk Within the Last 30 days?: No Have you Ever Experienced Previous Episodes of Alcohol Withdrawal?: No Have you ever Experienced Withdrawal Seizures?: No Have you ever Experienced Delirium Tremens(DT)s?: No Have you ever undergone Alcohol Rehabilitation Treatment (i.e, inpt ot outpatient treatment programs)?: No Have you ever Experienced Blackouts?: No Have you ever Combined Alcohol with other Downers within the last 90 days?: No Have you ever Combined Alcohol with any other Substance of Abuse during the last 90 days?: No Positive Blood Alcohol level on Presentation? [PCS.BAL]: No Evidence of Increased Autonomic Activity (i.e. HR>120, tremor, sweating, agitation, nausea)?: No Result: 0
--- NOTE | 2021-03-20 15:30 | DI.CT_ITS ---
Exam(s) CT ABDOMEN PELVIS W EXAM: CT ABDOMEN PELVIS W CLINICAL HISTORY: diffuse abd pain, worse in epigastrum. TECHNIQUE: Imaging Protocol: Axial computed tomography images with coronal and sagittal reformatted images were created and reviewed CONTRAST MATERIAL: Intravenous: Omnipaque 350 Contrast volume:80 ml Oral: no COMPARISON: CT CT ABDOMEN PELVIS W from 12/21/2019 FINDINGS: ABDOMEN: Lung Bases: Normal where visualized. Liver: Normal density. No measurable mass. Gallbladder and biliary tract: No radiodense calculus or dilation. Pancreas: Normal density, no abnormal calcifications or inflammatory process. Spleen: Normal. Kidneys: Normal size, contour and axis. No radiodense stones or obstructive uropathy. No masses seen. Adrenal glands: No masses seen. Abdominal Aorta: Abdominal portion non-dilated. PELVIS: Bladder: No gross wall thickening. No calculi.No focal mass. Bowel: Somewhat limited evaluation due to lack of oral contrast. No obstruction or bowel wall thicke krishna. Appendix normal.Few diverticula sigmoid colon. Peritoneal cavity: No ascites, collection or mesenteric inflammatory response. Bones: Within normal limits for age. Reproductive organs: IUD in appropriate position. Lymph nodes: Unremarkable. Impression: Unremarkable CT scan of the abdomen and pelvis. RADIATION DOSE DELIVERED: 542.89mGy.cm Total DLP DATA REPOSITORY: All CT scans at this facility are submitted to the National Radiology Data Registry (NRDR) Dose Index Registry (DIR) with the [employer] (A[employer]). RADIATION OPTIMIZATION: All CT scans at this facility use at least one of these dose optimization te chniques: automated exposure control; mA and/or kV adjustment per patient size (includes targeted exa ms where dose is matched to clinical indication); or iterative reconstruction.
[2021-03-20] MEDS: Ondansetron 4 MG/2 ML VIAL IVP (15:47)
[2021-03-20 15:53] LABS: Diff Comment Diff Reviewed; RBC Morphology Normal
[2021-03-20 15:54] LABS: D-Dimer 233 ng/mlFEU (<500)
[2021-03-20] MEDS: Omnipaque 350 MG/ML 100 ML BTL 80 ML IJ (17:23)
[2021-03-20] MEDS: Normal Saline Flush 10 ML SYR IVP (17:24)
--- NOTE | 2021-03-20 17:54 | DI.VRAD_ITS ---
PROCEDURE INFORMATION: Exam: CT Abdomen And Pelvis With Contrast Exam date and time: 03/20/2021 15:37 Age: 30 years old Clinical indication: Other: Diffuse abd pain, worse in epigastrum TECHNIQUE: Imaging protocol: Computed tomography of the abdomen and pelvis with contrast. Radiation optimization: All CT scans at this facility use at least one of these dose optimization techniques: automated exposure control; mA and/or kV adjustment per patient size (includes targeted exams where dose is matched to clinical indication); or iterative reconstruction. Contrast material: OMNIPAQUE 350; Contrast volume: 80 ml; Contrast route: INTRAVENOUS (IV); COMPARISON: CT ABDOMEN PELVIS W 12/21/2019 10:36 FINDINGS: Liver: No mass. Gallbladder and bile ducts: No calcified stones. No ductal dilation. Pancreas: No ductal dilation. No masses. Spleen: No splenomegaly or focal lesions. Adrenal glands: No mass. Kidneys and ureters: No renal masses or hydronephrosis bilaterally. Stomach and bowel: Normal CT appearance of the stomach. Normal CT appearance of the duodenum. Minimal distal diverticulosis. No colonic wall thickening for the degree of distension. No focal pathology in the small bowel. Appendix: No evidence of appendicitis. Intraperitoneal space: No free air. No significant fluid collection. Vasculature: No abdominal aortic aneurysm. Lymph nodes: No significantly enlarged lymph nodes. Urinary bladder: The urinary bladder is distended. No urinary bladder wall thickening. Reproductive: IUD in the uterus in the expected position. Bones/joints: No acute fracture. Soft tissues: No suspicious lesions. IMPRESSION: 1. No acute findings. 2. Incidental findings as described. Dictated and Authenticated by: Josefina Lerma MD. Ordering:YEIMY Lyles MD
[2021-03-20] MEDS: diazePAM 10 MG/2 ML SYR 2 MG IVP (18:32)
[2021-03-20] MEDS: Sucralfate 1 GM TAB PO (19:21)
[2021-03-20] MEDS: FAMOTIDINE 20 MG/50 ML BAG 200 MG IVPB (19:23)
[2021-03-20] MEDS: oxyCODONE 5 MG TAB PO (20:38)
[2021-03-20] MEDS: Ondansetron O.D.T. 4 MG TABEF, 3 TABS/BTL PO (20:39)
[2021-03-20] MEDS: QUEtiapine 100 MG TAB (20:59)
[2021-03-22 16:26] LABS: COVID-19 RT-PCR UVMMC Result Negative (Negative)
--- NOTE | 2021-03-22 17:58 | NUR.NOTE ---
negative covid result left on pt's answering machine [phone].Nursing Note:
== END 2021-03-20 21:05 | disposition home or self-care (01) ==
PROVIDERS: Emergency Provider Physician Assistant; PCP Nurse Practitioner Family
DX: R10.9 Unspecified abdominal pain (principal); R11.2 Nausea with vomiting, unspecified; R19.7 Diarrhea, unspecified; R00.0 Tachycardia, unspecified
CPT/HCPCS: 36415; 80053; 81025; 83690; 96361; 96365; 96367; 96375; 99285; U0003; 74177; 81003; 81015; 83735; 84484; 85025; 85379; 99284; J2405; J3360; J3490

== ENCOUNTER 2021-11-24 10:58 | Emergency (ER) | payer MEDICAID, SELFPAY ==
[2021-11-24 11:20] VITALS: BP 160/111; PULSE 90; RESP 26; TEMP 36.6; O2SAT 98
[2021-11-24 11:53] LABS: Bilirubin Negative (Negative); Blood Negative (Negative); Clarity Clear (Clear); Glucose Negative (Negative); Ketones >=160 mg/dL (Negative); Leukocyte Esterase Negative (Negative); Nitrite Negative (Negative); Specific Gravity >= 1.030 (1.005-1.025); Urobilinogen 0.2 EU/dL (Up TO 0.2)
[2021-11-24 12:00] LABS: Bacteria Rare HPF (Negative); C & S Indicated? No/Sq. Contamination; Casts 0-2 Hyaline LPF (Negative); Crystals Negative HPF (Negative); Epithelial Cells Moderate HPF (Negative); Mucus Negative (Negative); RBC Negative HPF (0-2); WBC Negative HPF (0-5)
[2021-11-24] MEDS: Ondansetron 4 MG/2 ML VIAL IVP (12:05)
[2021-11-24] MEDS: Normal Saline 1,000 ML 1000 ML IV ×2 (12:05→13:55)
[2021-11-24 12:21] LABS: Abs Immature Grans 0.03 10^3/uL (0.0-0.06); Absolute Basophil Count 0.04 10^3/uL (0.0-0.2); Absolute Eosinophil Count 0.02 10^3/uL (0.0-0.7); Absolute Lymphocyte Count 1.39 10^3/uL (1.2-3.4); Absolute Monocyte Count 0.26 10^3/uL (0.1-0.8); Basophils % 0.5; Eosinophils % 0.2; HCT 45.6 % (36.0-46.0); HGB 15.2 g/dL (11.2-15.7); Immature Grans % 0.4; Lymphocytes % 17.3; MCH 29.9 pg (27.0-33.0); MCHC 33.3 % (32.0-36.0); MCV 90 fL (80-95); MPV 9.1 fL (8.0-11.0); Monocytes % 3.2; Neutrophils % 78.4; Platelet Count 294 10^3/uL (130-400); RBC 5.08 10^6/uL (3.93-5.22); RDW 11.8 % (11.7-14.6); RDW-SD 38.7 fL; WBC 8.04 10^3/uL (4.4-10.8)
--- NOTE | 2021-11-24 12:33 | ED.GENADUL_ITS ---
Discharge Plan Disposition Patient Disposition: HOME Condition: Improving Discharge Details Clinical Impression: Abdominal pain, Nausea & vomiting Primary Care Provider: Christina Brock ED Provider: Thien Hamilton Home Meds and New Rx's Prescriptions: New ondansetron 4 mg tablet,disintegrating 4 mg PO TID PRN3 Days Qty: 9 0RF sucralfate [Carafate] 1 gram tablet 1 g PO BID Qty: 14 0RF Continued sertraline 100 MG tablet 200 mg PO HS quetiapine [Seroquel] 100 MG tablet 400 mg PO HS capsaicin 0.1 % cream 1 applic topical TID Qty: 42.5 0RF Rx Instructions: do not wash area for at least 30 min after application Vyvanse 70 mg Capsule 70 mg PO DAILY albuterol sulfate 90 mcg/actuation HFA aerosol inhaler 2 puff IH Q6H PRN (Reason: shortness of breath or wheezing) Qty: 8 0RF ondansetron 4 mg tablet,disintegrating 4 mg PO TID PRN (Reason: nausea and vomiting) Qty: 6 0RF Discharge Instructions Instructions: Acute Nausea and Vomiting (ED), Abdominal Pain (ED) Additional Instructions: Zofran and Carafate as directed. Clear liquid diet, advance as tolerated. Plenty of fluids to avoid dehydration. Please watch for new or worsening symptoms and return to the ER for any concerns. Lastly, please contact your primary care provider tomorrow to discuss your ER visit and need for outpatient reevaluation Medical Decision Making This is a 31-year-old female with past medical history of ADD, anxiety, asthma, depression, but she was told it was cyclic vomiting, presents to the ER for abdominal pain, nausea, vomiting that began last night, unfortunately she is out of her Zofran and Carafate. Patient reports that she has had multiple similar episodes and this feels exactly the same. Denies fever, chest pain, shortness of breath, diarrhea, constipation, dysuria, vaginal bleeding or discharge. Denies recent sick exposures or bad food exposure. Plan to obtain IV access, give IV fluid, Zofran, topical capsaicin and reassess. Upon reevaluation patient reports some improvement of her symptoms but they have not resolved. We will provide IV Toradol, Phenergan, GI cocktail p.o. Laboratory values reveal no evidence of leukocytosis, anemia, thrombocytopenia. Anion gap is 17.9, she is receiving 1 L of IV fluid and I will provide a second liter after the first. Glucose 98 LFTs unremarkable lipase 84. Urinalysis reveals greater than 60 ketones. Given her anion gap and ketones in urine, I believe she will benefit from 2 L IV Upon reevaluation she reports significant improvement of all of her symptoms. Abdomen is soft, nontender. I see no indication for advanced imaging or need to repeat labs to reassess anion gap as she appears well, nontoxic, feels well, and received 2 L IV fluid. I will provide a refill of her 2 medications Standard discharge and return precautions were provided. Patient understands, is agreeable to this plan, and has no additional questions or concerns upon discharge. This documentation was generated using [employer] Vision[employer] system, please disregard any oddities of phrase or misspellings. Medical Records Medical records reviewed: Yes I reviewed the patient's medical records. Lab Data Lab results reviewed: Yes I reviewed the patient's lab results. Labs: Laboratory Tests Range/Units 11/24/21 11/24/21 11/24/21 11:40 12:00 12:00 WBC (4.4-10.8) 10^3/uL 8.04 RBC (3.93-5.22) 10^6/uL 5.08 Hgb (11.2-15.7) g/dL 15.2 Hct (36.0-46.0) % 45.6 MCV (80-95) fL 90 MCH (27.0-33.0) pg 29.9 MCHC (32.0-36.0) % 33.3 RDW (11.7-14.6) % 11.8 Plt Count (130-400) 10^3/uL 294 MPV (8.0-11.0) fL 9.1 Immature Gran % 0.4 Neutrophils % 78.4 Lymphocytes % 17.3 Monocytes % 3.2 Eosinophils % 0.2 Basophils % 0.5 Nucleated RBC % (0.0-0.3) % 0.0 Absolute Neutrophils (1.2-6.7) 10^3/uL 6.30 Absolute Lymphocytes (1.2-3.4) 10^3/uL 1.39 Absolute Monocytes (0.1-0.8) 10^3/uL 0.26 Absolute Eosinophils (0.0-0.7) 10^3/uL 0.02 Absolute Basophils (0.0-0.2) 10^3/uL 0.04 Sodium (136-145) mmol/L 136 Potassium (3.5-5.1) mmol/L 3.6 Chloride (98-107) mmol/L 99 Carbon Dioxide (21.0-32.0) mmol/L 19.1 L Anion Gap (3-11) mmol/L 17.9 H BUN (7-18) mg/dL 12 Creatinine (0.55-1.02) mg/dL 0.9 Est GFR (CKD-EPI 2020) (mL/min/1.73m2) 87.11 Glucose (74-106) mg/dL 98 Calcium (8.5-10.1) mg/dL 8.8 Total Bilirubin (0.2-1.0) mg/dL 0.5 AST (15-37) U/L 16 ALT (14-59) U/L 19 Alkaline Phosphatase (46-116) U/L 69 Total Protein (6.4-8.2) g/dL 7.8 Albumin (3.4-5.0) g/dL 4.1 Lipase (73-393) U/L 84 Urine Color (Yellow) Yellow Urine Clarity (Clear) Clear Urine pH (5-8) 6.0 Ur Specific [place] (1.005-1.025) >= 1.030 H Urine Protein (Negative) mg/dL Trace H Urine Ketones (Negative) mg/dL >=160 H Urine Blood (Negative) Negative Urine Nitrite (Negative) Negative Urine Bilirubin (Negative) Negative Urine Urobilinogen (Up TO 0.2) EU/dL 0.2 Ur Leukocyte Esterase (Negative) Negative Urine RBC (0-2) HPF Negative Urine WBC (0-5) HPF Negative Ur Epithelial Cells (Negative) HPF Moderate Urine Crystals (Negative) HPF Negative Urine Bacteria (Negative) HPF Rare Urine Casts (Negative) LPF 0-2 Hyaline Urine Mucus (Negative) Negative Ur Culture Indicated? No/Sq. Contamination Urine Glucose (Negative) mg/dL Negative HPI General Mode of arrival: ambulatory . Date/Time Provider Initiated Documentation: 11/24/21 11:00 . Limitations to Documentation: no limitations . Information obtained by: patient . History of Present Illness 31 year old F presents to the emergency department with the chief complaint of N/V, abd pain, described as moderate, with intensity rated at 7. Quality is described as aching, and is localized to the abdomen. Patient reports no radiation. Patient started experiencing this day(s) (1) and it has been constant. No relieving factors improve symptom(s), No exacerbating factors reported . Patient notes no other symptoms.. Patient did receive the following treatments prior to arrival, none Related Data Home Medications Medication Instructions Recorded Confirmed quetiapine 100 mg tablet (Seroquel) 400 mg PO HS 06/09/17 11/24/21 sertraline 100 mg tablet 200 mg PO HS 06/09/17 11/24/21 albuterol sulfate 90 mcg/actuation 2 puff inhalation Q6H PRN 05/09/18 11/24/21 aerosol inhaler shortness of breath or wheezing #8 grams capsaicin 0.1 % topical cream 1 applic topical TID #42.5 grams 05/09/20 11/24/21 ondansetron 4 mg disintegrating 4 mg PO TID PRN nausea and 03/20/21 11/24/21 tablet vomiting #6 tabs lisdexamfetamine 70 mg capsule 70 mg PO DAILY 11/24/21 11/24/21 (Vyvanse) ondansetron 4 mg disintegrating 4 mg PO TID PRN 3 days #9 tabs 11/24/21 tablet sucralfate 1 gram tablet (Carafate) 1 g PO BID #14 tabs 11/24/21 Previous Rx's Medication Instructions Recorded albuterol sulfate 90 mcg/actuation 2 puff inhalation Q6H PRN 05/09/18 aerosol inhaler shortness of breath or wheezing #8 grams capsaicin 0.1 % topical cream 1 applic topical TID #42.5 grams 05/09/20 ondansetron 4 mg disintegrating 4 mg PO TID PRN nausea and 03/20/21 tablet vomiting #6 tabs ondansetron 4 mg disintegrating 4 mg PO TID PRN 3 days #9 tabs 11/24/21 tablet sucralfate 1 gram tablet (Carafate) 1 g PO BID #14 tabs 11/24/21 Allergies Allergy/AdvReac Type Severity Reaction Status Date / Time No Known Allergies Allergy Unverified 09/08/22 12:28 General Stated Complaint: Nausea/Vomit/Diar ALYSE: 3 Review of Systems Constitutional Constitutional: Denies fever(s) and Denies weakness Cardiovascular Cardiovascular: Denies chest pain and Denies dyspnea Respiratory Respiratory: Denies cough and Denies dyspnea Gastrointestinal Gastrointestinal: Reports abdominal pain, Denies constipation, Denies diarrhea, Reports nausea and Reports vomiting Genitourinary Genitourinary: Denies abnormal vaginal bleeding, Denies dysuria and Denies vaginal discharge Musculoskeletal Musculoskeletal: Denies back pain Integumentary/Breasts Skin/Breast: Denies rash Neurologic Neurologic: Denies weakness PFSH All Active Problems (Updated 11/24/21 @ 14:21 by MAME Shelby) Nausea & vomiting (Acute) Lead exposure (Acute) Abdominal pain (Acute) Epigastric pain (Acute) ADHD (attention deficit hyperactivity disorder) (Acute 12/13/15) Medical History ADD (attention deficit disorder) Anxiety Asthma Depression Ovarian cyst Pap smear vag w [facility]- Social History Smoking/Tobacco Use Status: Former Tobacco Use Smoking risk assessment performed?: Yes Alcohol Intake: current Alcohol Intake frequency: holidays/special occasions only Drug use: Occasionally Substance use type: marijuana Do you feel safe at home: Yes Do you feel safe in your relationship?: Yes Exam Const General: cooperative, healthy appearing, comfortable and no acute distress Orientation: alert and awake HENMO Head: normal to inspection, normocephalic and atraumatic Mouth: moist mucous membranes abnormal (dry) Eyes General: appearance normal, both eyes and all related structures Conjunctivae: conjunctivae normal Neck Neck: normal visual inspection, full ROM, no meningeal signs, trachea midline and supple Resp Effort & Inspection: normal respiratory effort and able to speak in complete sentences Auscultation: clear to auscultation bilaterally Cardio Rate: regular rate Rhythm: regular rhythm GI Palpation: soft, not firm, no guarding, no pulsatile masses and nontender Auscultation: normal bowel sounds Back/Spine/Pelvis Back: no CVA tenderness and No back tenderness Skin General skin exam: no rashes or lesions noted Neuro General: patient alert, patient awake, moves all extremities and no focal motor deficits Cognition: normal cognition Speech: speech normal Gait: normal gait Sensory Exam: no sensory deficits noted Extrem General: normal to inspection, full ROM and capillary refill normal Psych Appearance: grossly normal Mental Status: mental status grossly normal Course Vital Signs Vital signs: Vital Signs Temperature 36.6 C 11/24/21 11:20 Pulse 90 11/24/21 11:20 Respiratory Rate 26 H 11/24/21 11:20 Blood Pressure 160/111 H 11/24/21 11:20 Pulse Oximetry 98 11/24/21 11:20 Temperature 36.6 C 11/24/21 11:20 Temperature Source Tympanic 11/24/21 11:20 Pulse 90 11/24/21 11:20 Respiratory Rate 26 H 11/24/21 11:20 Respiratory Effort Non-Labored 11/24/21 12:22 Blood Pressure 160/111 H 11/24/21 11:20 Pulse Oximetry 98 11/24/21 11:20 Oxygen Delivery Method Room Air 11/24/21 11:20 Oxygen Flow Rate 0 11/24/21 11:20 Pain Level 7 11/24/21 12:05 Lab/Test Results Lab/Test Results: Laboratory Tests Range/Units 11/24/21 11:40 Urine Color (Yellow) Yellow Urine Clarity (Clear) Clear Urine pH (5-8) 6.0 Ur Specific [place] (1.005-1.025) >= 1.030 H Urine Protein (Negative) mg/dL Trace H Urine Ketones (Negative) mg/dL >=160 H Urine Blood (Negative) Negative Urine Nitrite (Negative) Negative Urine Bilirubin (Negative) Negative Urine Urobilinogen (Up TO 0.2) EU/dL 0.2 Ur Leukocyte Esterase (Negative) Negative Urine RBC (0-2) HPF Negative Urine WBC (0-5) HPF Negative Ur Epithelial Cells (Negative) HPF Moderate Urine Crystals (Negative) HPF Negative Urine Bacteria (Negative) HPF Rare Urine Casts (Negative) LPF 0-2 Hyaline Urine Mucus (Negative) Negative Ur Culture Indicated? No/Sq. Contamination Urine Glucose (Negative) mg/dL Negative POC- Test(urine) Negative PAWSS Have you Been Recently Intoxicated or Drunk Within the Last 30 days?: No Have you Ever Experienced Previous Episodes of Alcohol Withdrawal?: No Have you ever Experienced Withdrawal Seizures?: No Have you ever Experienced Delirium Tremens(DT)s?: No Have you ever undergone Alcohol Rehabilitation Treatment (i.e, inpt ot outpatient treatment programs)?: No Have you ever Experienced Blackouts?: No Have you ever Combined Alcohol with other Downers within the last 90 days?: No Have you ever Combined Alcohol with any other Substance of Abuse during the last 90 days?: No Positive Blood Alcohol level on Presentation? [PCS.BAL]: No Evidence of Increased Autonomic Activity (i.e. HR>120, tremor, sweating, agitation, nausea)?: No Result: 0
[2021-11-24] MEDS: Ketorolac 30 MG/ML VIAL IVP (12:39)
[2021-11-24 12:42] LABS: ALT 19 U/L (14-59); AST 16 U/L (15-37); Albumin 4.1 g/dL (3.4-5.0); Alkaline Phosphatase 69 U/L (46-116); Anion Gap 17.9 mmol/L (3-11); BUN 12 mg/dL (7-18); Bilirubin, Total 0.5 mg/dL (0.2-1.0); CO2 19.1 mmol/L (21.0-32.0); CREATININE 0.9 mg/dL (0.55-1.02); Calcium 8.8 mg/dL (8.5-10.1); Chloride 99 mmol/L (98-107); Estimated GFR 87.11 (mL/min/1.73m2); Glucose 98 mg/dL (74-106); Lipase 84 U/L (73-393); Potassium 3.6 mmol/L (3.5-5.1); Sodium 136 mmol/L (136-145); Total Protein 7.8 g/dL (6.4-8.2)
[2021-11-24 13:39] VITALS: BP 114/83; PULSE 86; RESP 16; O2SAT 100
[2021-11-24 14:52] VITALS: BP 127/68; PULSE 86; RESP 16; O2SAT 97
== END 2021-11-24 14:54 | disposition home or self-care (01) ==
PROVIDERS: Emergency Provider Physician Assistant; PCP Nurse Practitioner Family
DX: R11.2 Nausea with vomiting, unspecified (principal); R10.9 Unspecified abdominal pain; J45.909 Unspecified asthma, uncomplicated; Z87.891 Personal history of nicotine dependence
CPT/HCPCS: 80053; 81025; 83690; 96361; 96365; 96375; 99284; 81003; 81015; 85025; J1885; J2405

== ENCOUNTER 2022-02-21 04:14 | Emergency (ER) | payer MEDICAID, SELFPAY ==
[2022-02-21] VITALS (30 sets, daily range): BP systolic 68–138; BP diastolic 54–94; PULSE 123–142; RESP 4–29; TEMP 36.3
[2022-02-21] MEDS: Albuterol 2.5 MG/3 ML INH SOLN VIAL (04:25)
[2022-02-21] MEDS: methylPREDNISolone SUCC 125 MG VIAL IVP (04:30)
[2022-02-21] MEDS: Albuterol/Ipratropium 3 ML UPD VIAL 9 ML UPD (04:30)
[2022-02-21] MEDS: MAGNESIUM SULFATE 2 GM/50 ML BAG IVPB (04:35)
[2022-02-21 04:38] LABS: Abs Immature Grans 0.02 10^3/uL (0.0-0.06); Absolute Basophil Count 0.05 10^3/uL (0.0-0.2); Absolute Eosinophil Count 1.04 10^3/uL (0.0-0.7); Absolute Lymphocyte Count 3.16 10^3/uL (1.2-3.4); Absolute Monocyte Count 0.72 10^3/uL (0.1-0.8); Absolute Neutrophil Count 3.53 10^3/uL (1.2-6.7); Basophils % 0.6; Eosinophils % 12.2; HCT 47.3 % (36.0-46.0); HGB 15.7 g/dL (11.2-15.7); Immature Grans % 0.2; Lymphocytes % 37.1; MCH 30.2 pg (27.0-33.0); MCHC 33.2 % (32.0-36.0); MCV 91 fL (80-95); MPV 9.3 fL (8.0-11.0); Monocytes % 8.5; Neutrophils % 41.4; Platelet Count 297 10^3/uL (130-400); RDW 13.3 % (11.7-14.6); WBC 8.52 10^3/uL (4.4-10.8)
--- NOTE | 2022-02-21 04:45 | DI.RAD_ITS ---
Exam(s) XR PORTABLE CHEST AP EXAM: XR PORTABLE CHEST AP CLINICAL HISTORY: cough, r/o pneumonia TECHNIQUE: 2D digital imaging was performed of the chest. One image was obtained. An AP view was ob tained. COMPARISON: CR XR CHEST 2V PA LATERAL from 04/13/2018 FINDINGS: MEDIASTINUM: Normal. HEART: Normal. PULMONARY VASCULATURE: Normal. LUNGS: Clear. PLEURAL SPACE: No pleural effusion or pneumothorax. BONE:Within normal limits for the patient's age. OTHER FINDINGS:Normal. IMPRESSION: No acute pulmonary findings. DATA REPOSITORY: RADIATION DOSE DELIVERED:
[2022-02-21 04:53] LABS: ALT 26 U/L (14-59); AST 18 U/L (15-37); Albumin 4.4 g/dL (3.4-5.0); Alkaline Phosphatase 79 U/L (46-116); Anion Gap 13.1 mmol/L (3-11); BUN 12 mg/dL (7-18); Bilirubin, Total 0.5 mg/dL (0.2-1.0); CO2 25.9 mmol/L (21.0-32.0); CREATININE 1.2 mg/dL (0.55-1.02); Chloride 99 mmol/L (98-107); Estimated GFR 61.68 (mL/min/1.73m2); Glucose 160 mg/dL (74-106); Potassium 3.9 mmol/L (3.5-5.1); Sodium 138 mmol/L (136-145); Total Protein 8.5 g/dL (6.4-8.2); Troponin I < 50 ng/L (<or=60)
--- NOTE | 2022-02-21 05:09 | ED.GENADUL_ITS ---
Discharge Plan Disposition Patient Disposition: Home Condition: Good Discharge Details Clinical Impression: Asthma exacerbation, Pneumonia Primary Care Provider: Christina Brock ED Provider: Enrrique Ruiz Home Meds and New Rx's Prescriptions: New doxycycline hyclate 100 mg tablet 100 mg PO BID Qty: 20 0RF benzonatate 100 mg capsule 100 mg PO TID Qty: 30 0RF prednisone 50 mg tablet 50 mg PO DAILY Qty: 5 0RF No Action sertraline 100 MG tablet 200 mg PO HS quetiapine [Seroquel] 100 MG tablet 400 mg PO HS capsaicin 0.1 % cream 1 applic topical TID Qty: 42.5 0RF Rx Instructions: do not wash area for at least 30 min after application Vyvanse 70 mg Capsule 70 mg PO DAILY sucralfate [Carafate] 1 gram tablet 1 g PO BID Qty: 14 0RF albuterol sulfate 90 mcg/actuation HFA aerosol inhaler 2 puff IH Q6H PRN (Reason: shortness of breath or wheezing) Qty: 8 0RF ondansetron 4 mg tablet,disintegrating 4 mg PO TID PRN (Reason: nausea and vomiting) Qty: 6 0RF clonazepam 1 mg tablet 1 mg PO PRN Discharge Instructions Instructions: Asthma (ED), Pneumonia (ED) Additional Instructions: At this time your symptoms are consistent with an asthma exacerbation as well as mild pneumonia. Your flu/COVID/RSV tests are negative. Please take the antibiotic doxycycline as directed. Take the medication Tessalon Perles to help with the cough. Please use albuterol inhaler, 2 puffs every 4-6 hours for the next 2 to 3 days and your Symbicort inhaler 2 puffs every 12 hours. Please take the steroid as directed to help with the asthma exacerbation If you notice any worsening of your symptoms, or any new symptoms such as vomiting, diarrhea, fever, chills, shortness of breath, chest pain, numbness, weakness, or fainting , please return immediately to the emergency department for reevaluation. Please follow up with your primary care provider as soon as possible for reassessment and reevaluation. As always, it was a pleasure participating in your medical care today. Referrals: Christina Brock [Primary Care Provider] - Medical Decision Making 31-year-old female with a past medical history of asthma presents today for asthma exacerbation. Patient states that she has had a viral illness for the last few days, and over the last 5 days she has noticed increased difficulty breathing. She has taken intermittent breathing treatments which have not been helpful. She denies any vomiting or diarrhea. She denies any current fever. Chest is painful with breathing which she describes a burning sensation. She denies any hemoptysis, headache or neck pain. She does not smoke. No other complaints at this time. No other modifying factors. Exam demonstrates diffuse wheezes throughout, oxygen saturation 98%. Patient is tachycardic. Intercostal retractions are noted. Will start treatment with duo nebs, steroids, and 2 g of magnesium. We will monitor closely and reassess. 6:30 a.m. Patient is feeling notably improved after breathing treatments. Wheezes notably improved and her shortness of breath has almost resolved. Laboratory work-up stable. I do feel that there is a small consolidation in the left upper/midlung field. We will treat for pneumonia with doxycycline. We will give steroids, Symbicort, and albuterol for home use. Discussed red flags for which to return. Chest x-ray negative for pneumothorax. I have extensively reviewed the treatment plan and discharge instructions with the patient. I have addressed all patient concerns at this time. The patient was made aware of what symptoms to monitor for that would warrant a return to the emergency department. Discussed the plan with the patient, they demonstrate verbal understanding and agreement with our assessment and plan at this time. The documentation in this chart was dictated using [employer] dictation software. Please excuse any dictation errors. Sign Out No HPI General Date/Time Provider Initiated Documentation: 02/21/22 04:20 . HPI Narrative: 31-year-old female with a past medical history of asthma presents today for asthma exacerbation. Patient states that she has had a viral illness for the last few days, and over the last 5 days she has noticed increased difficulty breathing. She has taken intermittent breathing treatments which have not been helpful. She denies any vomiting or diarrhea. She denies any current fever. Chest is painful with breathing which she describes a burning sensation. She denies any hemoptysis, headache or neck pain. She does not smoke. No other complaints at this time. No other modifying factors. Related Data Home Medications Medication Instructions Recorded Confirmed quetiapine 100 mg tablet (Seroquel) 400 mg PO HS 03/24/18 12/06/22 sertraline 100 mg tablet 200 mg PO HS 06/09/17 02/21/22 albuterol sulfate 90 mcg/actuation 2 puff inhalation Q6H PRN 05/09/18 02/21/22 aerosol inhaler shortness of breath or wheezing #8 grams capsaicin 0.1 % topical cream 1 applic topical TID #42.5 grams 05/09/20 02/21/22 ondansetron 4 mg disintegrating 4 mg PO TID PRN nausea and 03/20/21 02/21/22 tablet vomiting #6 tabs lisdexamfetamine 70 mg capsule 70 mg PO DAILY 11/24/21 02/21/22 (Vyvanse) sucralfate 1 gram tablet (Carafate) 1 g PO BID #14 tabs 11/24/21 02/21/22 benzonatate 100 mg capsule 100 mg PO TID #30 caps 02/21/22 clonazepam 1 mg tablet 1 mg PO PRN 02/21/22 doxycycline hyclate 100 mg tablet 100 mg PO BID #20 tabs 02/21/22 prednisone 50 mg tablet 50 mg PO DAILY #5 tabs 02/21/22 Previous Rx's Medication Instructions Recorded albuterol sulfate 90 mcg/actuation 2 puff inhalation Q6H PRN 05/09/18 aerosol inhaler shortness of breath or wheezing #8 grams capsaicin 0.1 % topical cream 1 applic topical TID #42.5 grams 05/09/20 ondansetron 4 mg disintegrating 4 mg PO TID PRN nausea and 03/20/21 tablet vomiting #6 tabs sucralfate 1 gram tablet (Carafate) 1 g PO BID #14 tabs 11/24/21 benzonatate 100 mg capsule 100 mg PO TID #30 caps 02/21/22 doxycycline hyclate 100 mg tablet 100 mg PO BID #20 tabs 02/21/22 prednisone 50 mg tablet 50 mg PO DAILY #5 tabs 02/21/22 Allergies Allergy/AdvReac Type Severity Reaction Status Date / Time No Known Allergies Allergy Unverified 02/21/22 04:45 General Stated Complaint: RespSymp ALYSE: 2 Review of Systems All systems reviewed & are unremarkable except as noted in HPI and below PFSH All Active Problems (Updated 02/21/22 @ 06:30 by Enrrique Ruiz DO) Asthma exacerbation (Acute) Pneumonia (Acute) Lead exposure (Acute) Abdominal pain (Acute) Epigastric pain (Acute) ADHD (attention deficit hyperactivity disorder) (Acute 12/13/15) Medical History ADD (attention deficit disorder) Anxiety Asthma Depression Ovarian cyst Pap smear vag w [facility] Social History Smoking/Tobacco Use Status: Former Tobacco Use Smoking risk assessment performed?: Yes Alcohol Intake: current Alcohol Intake frequency: holidays/special occasions only Drug use: Occasionally Substance use type: marijuana Do you feel safe at home: Yes Do you feel safe in your relationship?: Yes Exam Narrative Exam Narrative: 1.Const: Well-nourished, Well-developed, appearing stated age 2.Eyes: PERRL, no conjunctival injection, and symmetrical lids. 3.ENT: Atraumatic external nose and ears. Moist MM. Neck: Symmetric, trachea midline, No thyromegaly. 4.CVS: +S1/S2, No murmurs or gallops. Peripheral pulses 2+ and equal in all extremities. Brisk capillary refill in all extremities. 5.RESP: Unlabored breathing, notable intercostal retractions. Diffuse wheezes throughout, and limited breath sounds throughout. Bedside limited ultrasound shows good pleural movement with no evidence of pneumothorax. 6.GI: Soft, Nontender/Nondistended, No hepatosplenomegaly. No guarding or rebound. 7.MSK: Normocephalic/Atraumatic, Extremities w/o deformity or ttp No cyanosis or clubbing, Normal movement of all extremities 8.Skin: Warm, Dry. No rashes or lesions. 9.Neuro: account services coordinator II-XII grossly intact. Sensation grossly intact, no focal neurologic deficits. 10.Psych: (AAO) x3. Appropriate mood and affect Course Vital Signs Vital signs: Vital Signs Temperature 36.3 C L 02/21/22 04:24 Pulse 142 H 02/21/22 04:24 Respiratory Rate 14 02/21/22 04:24 Blood Pressure 68/54 L 02/21/22 04:24 Temperature 36.3 C L 02/21/22 04:24 Temperature Source Temporal Artery Scan 02/21/22 04:24 Pulse 142 H 02/21/22 04:24 Respiratory Rate 14 02/21/22 04:24 Respiratory Effort Labored 02/21/22 04:47 Respiratory Depth Normal 02/21/22 04:47 Blood Pressure 68/54 L 02/21/22 04:24 Blood Pressure Position Sitting 02/21/22 04:24 Oxygen Delivery Method Room Air 02/21/22 04:24 Oxygen Flow Rate 0 02/21/22 04:24 Pain Level 7 02/21/22 04:24 Lab/Test Results Lab/Test Results: Laboratory Tests Range/Units 02/21/22 02/21/22 04:25 04:27 WBC (4.4-10.8) 10^3/uL 8.52 RBC (3.93-5.22) 10^6/uL 5.20 Hgb (11.2-15.7) g/dL 15.7 Hct (36.0-46.0) % 47.3 H MCV (80-95) fL 91 MCH (27.0-33.0) pg 30.2 MCHC (32.0-36.0) % 33.2 RDW (11.7-14.6) % 13.3 Plt Count (130-400) 10^3/uL 297 MPV (8.0-11.0) fL 9.3 Immature Gran % 0.2 Neutrophils % 41.4 Lymphocytes % 37.1 Monocytes % 8.5 Eosinophils % 12.2 Basophils % 0.6 Nucleated RBC % (0.0-0.3) % 0.0 Absolute Neutrophils (1.2-6.7) 10^3/uL 3.53 Absolute Lymphocytes (1.2-3.4) 10^3/uL 3.16 Absolute Monocytes (0.1-0.8) 10^3/uL 0.72 Absolute Eosinophils (0.0-0.7) 10^3/uL 1.04 H Absolute Basophils (0.0-0.2) 10^3/uL 0.05 Sodium (136-145) mmol/L 138 Potassium (3.5-5.1) mmol/L 3.9 Chloride (98-107) mmol/L 99 Carbon Dioxide (21.0-32.0) mmol/L 25.9 Anion Gap (3-11) mmol/L 13.1 H BUN (7-18) mg/dL 12 Creatinine (0.55-1.02) mg/dL 1.2 H Est GFR (CKD-EPI 2020) (mL/min/1.73m2) 61.68 Glucose (74-106) mg/dL 160 H Calcium (8.5-10.1) mg/dL 10.0 Total Bilirubin (0.2-1.0) mg/dL 0.5 AST (15-37) U/L 18 ALT (14-59) U/L 26 Alkaline Phosphatase (46-116) U/L 79 Troponin I (<or=60) ng/L < 50 Total Protein (6.4-8.2) g/dL 8.5 H Albumin (3.4-5.0) g/dL 4.4
[2022-02-21 05:11] LABS: COVID-19 PCR Negative (Negative); Influenza A PCR Negative (Negative); Influenza B PCR Negative (Negative); RSV PCR Negative (Negative)
[2022-02-21 05:13] LABS: Source Nasopharynx
[2022-02-21] MEDS: Benzonatate 100 MG CAP PO (05:41)
[2022-02-21] MEDS: Normal Saline 1,000 ML 1000 ML IV (05:45)
--- NOTE | 2022-02-21 06:40 | DI.VRAD_ITS ---
PROCEDURE INFORMATION: Exam: XR Chest Exam date and time: 02/21/2022 4:55 AM Age: 31 years old Clinical indication: Patient HX: Cough, R/O pneumonia TECHNIQUE: Imaging protocol: Radiologic exam of the chest. Views: 1 view. COMPARISON: CR XR CHEST 2V PA LATERAL 04/13/2018 1:54 PM FINDINGS: Lungs: The lungs are clear and well aerated bilaterally. There is no consolidation, infiltrate, or pulmonary edema. The pulmonary vasculature is normal in caliber. Pleural spaces: Unremarkable. No pleural effusion or pneumothorax. Heart/Mediastinum: Heart size and cardiomediastinal contours are normal. Bones/joints: Unremarkable. IMPRESSION: No active disease in the chest. Dictated and Authenticated by: Senia Us MD. Ordering:MINA Osuna MD
[2022-02-21] MEDS: Albuterol HFA 8 GM 60 PUFF INH IH (06:44)
[2022-02-21] MEDS: Acetaminophen 500 MG TAB 1000 MG PO (06:44)
[2022-02-21] MEDS: Inhaler, Assist Device 1 EACH MC (06:48)
[2022-02-21] MEDS: Doxycycline Hyclate 100 MG, 2 CAPS/BTL PO (06:51)
== END 2022-02-21 07:29 | disposition home or self-care (01) ==
PROVIDERS: Emergency Provider Student in an Organized Health Care Education/Training Program; PCP Nurse Practitioner Family
DX: J45.901 Unspecified asthma with (acute) exacerbation (principal); J18.9 Pneumonia, unspecified organism; F98.8 Other specified behavioral and emotional disorders with onset usually occurring in childhood and adolescence; Z20.822 Contact with and (suspected) exposure to COVID-19
CPT/HCPCS: 36415; 80053; 87637; 96361; 96365; 96366; 96375; 99284; 71045; 84484; 85025; J2930; J7613; J7620

== ENCOUNTER 2022-11-30 15:44 | Emergency (ER) | payer MEDICAID, SELFPAY ==
[2022-11-30 15:54] VITALS: BP 141/98; PULSE 108; RESP 18; TEMP 36.5
--- NOTE | 2022-11-30 15:59 | W.ED.GENAD ---
Discharge Plan Disposition Patient Disposition: Home Condition: Improving Discharge Details Chief Complaint: Orthopedic Clinical Impression: Fracture of fifth metatarsal bone of left foot Primary Care Provider: Christina Brock ED Provider: Kaycee Castillo Home Meds and New Rx's Prescriptions: No Action sertraline 100 MG tablet 200 mg PO HS quetiapine [Seroquel] 100 MG tablet 400 mg PO HS capsaicin 0.1 % cream 1 applic topical TID Qty: 42.5 0RF Rx Instructions: do not wash area for at least 30 min after application Vyvanse 70 mg Capsule 70 mg PO DAILY sucralfate [Carafate] 1 gram tablet 1 g PO BID Qty: 14 0RF albuterol sulfate 90 mcg/actuation HFA aerosol inhaler 2 puff IH Q6H PRN (Reason: shortness of breath or wheezing) Qty: 8 0RF ondansetron 4 mg tablet,disintegrating 4 mg PO TID PRN (Reason: nausea and vomiting) Qty: 6 0RF clonazepam 1 mg tablet 1 mg PO PRN doxycycline hyclate 100 mg tablet 100 mg PO BID Qty: 20 0RF benzonatate 100 mg capsule 100 mg PO TID Qty: 30 0RF hydroxyzine HCl 25 mg tablet 25 mg PO DAILY lisdexamfetamine [Vyvanse] 60 mg capsule 60 mg PO DAILY Discharge Instructions Instructions: Crutch Instructions (ED), Foot Fracture in Adults (ED) Additional Instructions: 1. Wear the foot splint all the time. You may remove it briefly for bathing and washing. You should sleep in the splint. 2. Do not bear weight on your foot which could cause the fracture to worsen. 3. Alternate acetaminophen every 3 hours with ibuprofen as needed for pain. 4. Return here for any new or worrisome symptoms. 5. You should be contacted by the podiatry office for follow-up within 7 to 10 days. Stand Alone Forms: Work Release Discharge Data Discharge Physician: Kaycee Castillo Medical Decision Making This is a 32-year-old female who inverted her left foot just prior to arrival and heard a crack. She has been unable to ambulate since then. On exam she has full range of motion of the left hip knee and ankle. There is tenderness over the lateral aspect of the left foot primarily over the distal aspect of the fifth metatarsal. My plan is to obtain plain films. I will write for acetaminophen and ibuprofen. She does not have any evidence of a head injury and is not clinically intoxicated. We will likely have her follow-up with podiatry and we will splint her and give her crutches Differential Diagnosis Differential Diagnosis: Fracture versus sprain versus contusion Medical Records Medical records reviewed: Yes I reviewed the patient's medical records. Imaging Data Radiologic Study: Imaging: X-Ray (Left foot) Radiologist's impression: Fifth metatarsal fracture HPI General Mode of arrival: wheelchair. Date/Time Provider Initiated Documentation: 11/30/22 15:57. Limitations to Documentation: no limitations. Information obtained by: patient, RN notes reviewed and old records reviewed. History of Present Illness with intensity rated at 9. HPI Narrative: Time seen was 1559 in bed 11. The patient is a 32-year-old female who presents with left foot pain after she inverted it while running down the stairs about an hour ago. She is complaining of a constant pain that ranges from 4-9 out of 10 and is sharp and is located on the plantar and lateral aspect of the left foot. She denies hitting her head or loss of consciousness. She denies any neck or back pain. She denies any chest pain abdominal pain, headache or blurry vision. She states she has twisted her foot in the past but has never fractured it. She denies any additional injury. She has not taken any medications for the pain. She initially denied numbness and tingling but then later said she has slight decrease sensation in all the toes of the left foot. She is employed as a waiter/waitress second class. Her boyfriend is a quadriplegic but does drive using hand instruments and he drove her in today. She denies any pain in the hip knee or ankle. She describes the pain as sharp hot burning and needlelike. She also states it feels cold inside her foot. The primary pain is on the lateral and plantar aspect. Related Data Home Medications Medication Instructions Recorded Confirmed quetiapine 100 mg tablet (Seroquel) 400 mg PO HS 06/09/17 11/30/22 sertraline 100 mg tablet 200 mg PO HS 06/09/17 11/30/22 albuterol sulfate 90 mcg/actuation 2 puff inhalation Q6H PRN 05/09/18 02/21/22 aerosol inhaler shortness of breath or wheezing #8 grams capsaicin 0.1 % topical cream 1 applic topical TID #42.5 grams 05/09/20 11/30/22 ondansetron 4 mg disintegrating 4 mg PO TID PRN nausea and 03/20/21 11/30/22 tablet vomiting #6 tabs lisdexamfetamine 70 mg capsule 70 mg PO DAILY 11/24/21 02/21/22 (Vyvanse) sucralfate 1 gram tablet (Carafate) 1 g PO BID #14 tabs 11/24/21 02/21/22 benzonatate 100 mg capsule 100 mg PO TID #30 caps 02/21/22 clonazepam 1 mg tablet 1 mg PO PRN 02/21/22 doxycycline hyclate 100 mg tablet 100 mg PO BID #20 tabs 02/21/22 hydroxyzine HCl 25 mg tablet 25 mg PO DAILY 11/30/22 11/30/22 lisdexamfetamine 60 mg capsule 60 mg PO DAILY 11/30/22 11/30/22 (Vyvanse) Previous Rx's Medication Instructions Recorded albuterol sulfate 90 mcg/actuation 2 puff inhalation Q6H PRN 05/09/18 aerosol inhaler shortness of breath or wheezing #8 grams capsaicin 0.1 % topical cream 1 applic topical TID #42.5 grams 05/09/20 ondansetron 4 mg disintegrating 4 mg PO TID PRN nausea and 03/20/21 tablet vomiting #6 tabs sucralfate 1 gram tablet (Carafate) 1 g PO BID #14 tabs 11/24/21 benzonatate 100 mg capsule 100 mg PO TID #30 caps 02/21/22 doxycycline hyclate 100 mg tablet 100 mg PO BID #20 tabs 02/21/22 Allergies Allergy/AdvReac Type Severity Reaction Status Date / Time No Known Allergies Allergy Unverified 11/30/22 15:58 General Stated Complaint: Orthopedic ALYSE: 4 Review of Systems Narrative: see hpi Musculoskeletal Comments: The patient has a history of a fracture of the left arm which she sustained as a child and was [place] conservatively [place] PFSH All Active Problems (Updated 11/30/22 @ 17:31 by Kaycee Castillo MD) Fracture of fifth metatarsal bone of left foot (Acute) Lead exposure (Acute) Abdominal pain (Acute) Epigastric pain (Acute) ADHD (attention deficit hyperactivity disorder) (Acute 12/13/15) Medical History ADD (attention deficit disorder) Anxiety Asthma Depression Ovarian cyst Pap smear vag w [facility] Social History Smoking/Tobacco Use Status: Former Tobacco Use Smoking risk assessment performed?: Yes Alcohol Intake: current Alcohol Intake frequency: holidays/special occasions only Drug use: Occasionally Substance use type: marijuana Do you feel safe at home: Yes Do you feel safe in your relationship?: Yes Exam Narrative Exam Narrative: The patient is well-developed well-nourished female sitting on the stretcher crying with an ice pack on the left foot. She is alert and oriented her GCS is 15. Her blood pressure was 141/98. She was slightly tachycardic at 108 and respiratory rate was 18 she was afebrile. Const General: cooperative, healthy appearing, comfortable, no acute distress, well developed, well groomed and well hydrated Nutritional Appearance: average body habitus and well nourished Orientation: alert, awake and oriented x3 HENMT Head: normal to inspection, normocephalic and atraumatic Ears: hearing grossly normal bilaterally and external ears normal General nose exam: external nose normal, nares normal and no nasal discharge Face and sinus: normal facial exam, sinuses nontender and face symmetric Mouth: oral mucosae normal, lip normal, tongue normal, oropharynx normal, moist mucous membranes and other (Normal phonation. The patient is handling secretions.) Throat: posterior oropharynx normal and uvula midline Eyes General: appearance normal, both eyes and all related structures Eyelids: eyelids normal Conjunctivae: conjunctivae normal Sclera: sclerae normal Cornea: corneas normal Pupils: PERRL EOM: EOM intact bilaterally and No nystagmus Neck Neck: normal visual inspection, full ROM, no lymphadenopathy, no meningeal signs, trachea midline and supple Lymphatic: no lymphadenopathy noted Chest Chest: normal inspection of the chest Resp Effort & Inspection: normal respiratory effort, able to speak in complete sentences, no audible wheezes, no nasal flaring, no respiratory distress, no retractions, no stridor, not tachypneic, no tracheal deviation, no use of accessory muscles, No prolonged expiratory phase and other (Normal inspiratory to expiratory ratio.) Auscultation: clear to auscultation bilaterally, no rales, no rhonchi, no wheezes and no rubs Tactile Fremitus: tactile fremitus absent Cardio Jugular venous pressure: no JVD Palpation: normal PMI Rate: regular rate Rhythm: regular rhythm Heart Sounds: S1 normal, S2 normal, no gallops, no murmurs and no rubs GI Inspection: normal to inspection and non-distended Palpation: soft, no hepatosplenomegaly, no guarding and nontender Percussion: normal to percussion Auscultation: normal bowel sounds General: No CVA tenderness Back/Spine/Pelvis Back: no CVA tenderness and No back tenderness Cervical Spine: normal cervical lordosis, cervical ROM normal, No cervical muscular tenderness, No pain with cervical ROM, No cervical spinal tenderness and No step off deformity Thoracic/Lumbar Spine: thoracic and lumbar spine normal to inspection, No thoracic spinal tenderness and No lumbar spinal tenderness Pelvis: no pain with anterior-posterior compression and no pain with lateral compression Skin General skin exam: no rashes or lesions noted, turgor normal, no petechiae, no purpura and other (Skin is normal for ethnicity.) Lesions: no lesions Rashes: no rashes Trauma: no lacerations or abrasions Neuro General: patient alert, patient awake, patient oriented x3, moves all extremities, no meningeal signs, no focal motor deficits and CN's II-XI intact bilaterally Cranial Nerves: CN's II-XI intact bilaterally, PERRL, accommodation normal, EOM intact bilaterally, no nystagmus, facial strength normal, tongue midline, hearing normal and no nystagmus Cognition: normal cognition Speech: speech normal Gait: normal gait Motor: muscle tone normal throughout and strength 5/5 throughout Sensory Exam: no sensory deficits noted Extrem General: no calf tenderness Other: The patient moving all of her extremities normally. The left lower extremity reveals full range of motion of the left hip knee and ankle. The left foot reveals mild tenderness over the distal aspect of the fifth metatarsal. Dorsalis pedis is intact. Cap refills less than 2 seconds. She has subjective decreased sensation in all the toes of the left foot. There is no deformity. There is slight swelling. No ecchymoses. The remainder of her extremities are unremarkable Psych Appearance: grossly normal Affect: normal affect Attitude: cooperative Thought Process: normal Thought Content: normal Insight: insight good Judgment: judgment good Other: The patient appears to have capacity make medical decisions. Course I have reviewed the patient's x-rays with her and advised her that she should not bear weight. She should leave the splint on 09/10 and can remove it for bathing or washing. I have advised her to that the canary breeder should call her for follow-up within 7 to 10 days. I have advised her to alternate acetaminophen every 3 hours with ibuprofen as needed for pain. I have advised her to return here for any new or worrisome symptoms. She did request a note for work. The patient voiced understanding agreement with the discharge plan. All her questions and concerns were addressed prior to discharge Vital Signs Vital signs: Vital Signs Temperature 36.5 C 11/30/22 15:54 Pulse 108 H 11/30/22 15:54 Respiratory Rate 18 11/30/22 15:54 Blood Pressure 141/98 H 11/30/22 15:54 Temperature 36.5 C 11/30/22 15:54 Temperature Source Oral 11/30/22 15:54 Pulse 108 H 11/30/22 15:54 Respiratory Rate 18 11/30/22 15:54 Blood Pressure 141/98 H 11/30/22 15:54 Blood Pressure Position Sitting 11/30/22 15:54 Oxygen Delivery Method Room Air 11/30/22 15:54 Oxygen Flow Rate 0 11/30/22 15:54 Pain Level 5 11/30/22 15:54 Comment movement pain increases to 9 11/30/22 15:54
[2022-11-30] MEDS: Acetaminophen 500 MG TAB 1000 MG PO (16:37)
[2022-11-30] MEDS: Ibuprofen 400 MG TAB PO (16:37)
--- NOTE | 2022-11-30 17:08 | DI.RAD_ITS ---
Exam(s) XR FOOT LT COMPLETE EXAM: XR FOOT LT COMPLETE CLINICAL HISTORY: trauma left lateral foot pain. TECHNIQUE: 2D digital imaging was performed. Three views. COMPARISON: No exams were available for comparison FINDINGS: BONES: Minimally displaced fracture extending obliquely through the distal metadiaphysis of the 5th m etatarsal. No additional fractures. No bony destructive lesion is seen. JOINTS: No dislocation present. SOFT TISSUE: Normal. IMPRESSION: Fifth metatarsal fracture. DATA REPOSITORY: RADIATION DOSE DELIVERED:
== END 2022-11-30 18:12 | disposition home or self-care (01) ==
PROVIDERS: Emergency Provider Emergency Medicine Emergency Medical Services; PCP Nurse Practitioner Family
DX: S92.352A Displaced fracture of fifth metatarsal bone, left foot, initial encounter for closed fracture; X50.1XXA Overexertion from prolonged static or awkward postures, initial encounter
CPT/HCPCS: 29515; 81025; 99283; 73630

== ENCOUNTER 2022-12-11 11:22 | Outpatient (CLI) | payer MEDICAID, SELFPAY ==
--- NOTE | 2022-12-11 10:45 | DI.RAD_ITS ---
Exam(s) XR FOOT LT COMPLETE EXAM: XR FOOT LT COMPLETE CLINICAL HISTORY: F/U FRACTURE. TECHNIQUE: 2D digital imaging was performed of the left foot. Three images were obtained. AP, obli que and lateral views were obtained. COMPARISON: CR XR FOOT LT COMPLETE from 11/30/2022 FINDINGS: BONES: There is stable alignment of the 5th metatarsal fracture. No new fractures identified. No vikram ny destructive lesion is seen. JOINTS: No dislocation present. SOFT TISSUE: Normal. IMPRESSION: Stable alignment of the 5th metatarsal fracture. DATA REPOSITORY: RADIATION DOSE DELIVERED:
== END 2022-12-11 11:23 | disposition home or self-care (01) ==
LOC: DIORS 11:22
PROVIDERS: PCP Nurse Practitioner Family; Visit Provider Student in an Organized Health Care Education/Training Program
DX: S92.352D Displaced fracture of fifth metatarsal bone, left foot, subsequent encounter for fracture with routine healing (principal); X58.XXXD Exposure to other specified factors, subsequent encounter
CPT/HCPCS: 73630